=== PATIENT | female | born 1930 | race Caucasian/White ===

== ENCOUNTER → 2016-04-22 | Outpatient (CLI) | payer MEDICARE ==
[~2016-04-22] MED LIST: ALEN70TA47 PO; ALPR.25T; ALPR0.254 PO; AMLO5TAB2 PO; ASP325T; ASP81TEC PO; ATEN50TA PO; ATOR40TA PO; CALC-69 PO; CIPR500T4 PO; DICY10CA12; HYDR1TAB PO; HYDR28.341 RC; LISI20TA2; LISI40TA PO; LORA10TA2 PO; METR500T PO; METR500T21 PO; ONDA4TAB11 PO; PRAV80TA2 PO
--- OUTSIDE RECORDS SUMMARY | 2016-04-22 13:03 | XMS REPORT | Continuity of Care Document ---
Author Author [facility] Organization [facility] Address Unknown Phone Unavailable Care Team Providers Care Audio Visual Coordinator Name Role Phone JAJA GAMEZ DO PCP Insurance Providers Payer Name Policy Number Subscriber Name Relationship Wps Medicare [id number] Reynaldo Cheng 20 Self / Same As Patient Blue [employer] [facility] Supp [id number] Reynaldo Cheng 20 Self / Same As Patient Advance Directives Directive Response Recorded Date/Time Advance Directives No 11/14/13 9:40am Health Care Power of Typesetting Machine Operator/Tender No 11/14/13 9:40am Organ Donor No 11/14/13 9:40am Resuscitation Status Full Code 11/14/13 9:40am Problems No known problems or medical conditions. Medications Medication Dose Route Sig Days/Qty Instructions Order Date Discontinued Date Status Atenolol PO TWICE A DAY 09/06/09 Active Atorvastatin Calcium PO BEDTIME 09/06/09 Active Dicyclomine Hcl FOUR TIMES DAILY 09/06/09 11/10/13 Discontinued Alprazolam NEEDED 09/06/09 Active Aspirin Every day 09/06/09 11/10/13 Discontinued Loratadine DAILY 09/06/09 Active Lisinopril DAILY 09/06/09 Active Acetaminophen/Hydrocodone Bitart 1 Each PO Q4HR PRN 20 Qty 09/06/09 Active Aspirin 81 Mg PO DAILY 11/10/13 Active Metronidazole 1 Each PO THREE TIMES A DAY 10 Days 11/14/13 Active Social History Social History Problem Response Recorded Date/Time Smoking Status Never a Smoker 11/14/2013 9:40am Query Response Start Date Stop Date Smoking Status Never a Smoker Hospital Discharge Instructions No hospital discharge instructions. Plan of Care No plan of care. Functional Status No functional status results. Allergies, Adverse Reactions, Alerts Allergen Type Severity Reaction Status Last Updated Erythromycin base Allergy Unknown Active 12/31/05 Amoxicillin ([id number]) Allergy Unknown Active 01/03/06 Immunizations Name Given Type Date of Pneumonia Vaccine 04/13/11 Historical Vital Signs Acute Vital Signs Vital Response Date/Time Temperature (Fahrenheit) 97.6 degrees F (97.6 - 99.5) Temperature (Calculated Celsius) 36.60699 degrees C (36.4 - 37.5) Temperature Source Tympanic Pulse Rate (adult) 90 bpm (60 - 90) Respiratory Rate 18 bpm (12 - 24) O2 Sat by Pulse Oximetry 98 % (88 - 100) Blood Pressure 171/75 mm Hg Pain Pain Intensity 0 Height (Feet) 5 feet Height (Inches) 3.00 inches Height (Calculated Centimeters) 160.521158 cm Weight (Pounds) 123 pounds Weight (Calculated Grams) 49957.862 gm Weight (Calculated Kilograms) 55.518616 kilograms Calculated BMI 21.79 Results Test Source Date Result Interp. Ref. Range Comments Activated Partial Thromboplast Time January 03, 2006 9:15am 32 SEC N 24-35 Alanine Aminotransferase (ALT/SGPT) May 22, 2009 8:05am 43 U/L N 30 -65 PATIENT SITTING ACROSS FROM LAB Albumin May 22, 2009 8:05am 3.6 G/DL N 3.4-5.0 PATIENT SITTING ACROSS FROM LAB Alkaline Phosphatase May 22, 2009 8:05am 72 U/L N 50-136 PATIENT SITTING ACROSS FROM LAB Aspartate Amino Transf (AST/SGOT) May 22, 2009 8:05am 29 U/L N 15- 37 PATIENT SITTING ACROSS FROM LAB BUN/Creatinine Ratio May 22, 2009 8:05am 16 - PATIENT SITTING ACROSS FROM LAB Band Neutrophils July 03, 2008 4:15am 8 % - Has specimen been collected/obtained? Y Basophils # (Auto) July 03, 2008 4:15am 0.0 10^3/uL N 0.0-0.1 Has specimen been collected/obtained? Y Basophils (%) (Auto) July 03, 2008 4:15am 0 % N 0-10 Has specimen been collected/obtained? Y Blood Urea Nitrogen May 22, 2009 8:05am 16 MG/DL N 7-18 PATIENT SITTING ACROSS FROM LAB Calcium Level May 22, 2009 8:05am 8.8 MG/DL N 8.5-10.1 PATIENT SITTING ACROSS FROM LAB Carbon Dioxide Level May 22, 2009 8:05am 32 MMOL/L N 21-32 PATIENT SITTING ACROSS FROM LAB Chloride Level May 22, 2009 8:05am 106 MMOL/L N 101-110 PATIENT SITTING ACROSS FROM LAB Cholesterol Level May 22, 2009 8:05am 157 MG/DL N -200 PATIENT SITTING ACROSS FROM LAB Creatinine May 22, 2009 8:05am 1.0 MG/DL N 0.6-1.3 PATIENT SITTING ACROSS FROM LAB Eosinophils # (Auto) July 03, 2008 4:15am 0.0 10^3/uL N 0.0-0.3 Has specimen been collected/obtained? Y Eosinophils % (Manual) July 03, 2008 4:15am 1 % - Has specimen been collected/obtained? Y Eosinophils (%) (Auto) July 03, 2008 4:15am 0 % N 0-10 Has specimen been collected/obtained? Y Erythrocyte Sedimentation Rate January 01, 2006 5:55am 9 MM/HR N 0-30 Glucose Level May 22, 2009 8:05am 90 MG/DL N 70-126 PATIENT SITTING ACROSS FROM LAB HDL Cholesterol May 22, 2009 8:05am 50 MG/DL N 35-60 PATIENT SITTING ACROSS FROM LAB Hematocrit July 03, 2008 4:15am 39 % N 35-52 Has specimen been collected/obtained? Y Hemoglobin July 03, 2008 4:15am 13.5 G/DL N 11.5-16.0 Has specimen been collected/obtained? Y LDL Cholesterol May 22, 2009 8:05am 93 MG/DL N 0-129 PATIENT SITTING ACROSS FROM LAB Lymphocytes # (Auto) July 03, 2008 4:15am 0.9 X 10^3 L 1.0-4.0 Has specimen been collected/obtained? Y Lymphocytes % (Manual) July 03, 2008 4:15am 10 % - Has specimen been collected/obtained? Y Lymphocytes (%) (Auto) July 03, 2008 4:15am 8 % L 12-44 Has specimen been collected/obtained? Y Magnesium Level December 31, 2005 2:45am 1.9 MG/DL N 1.8-2.4 Has specimen been collected/obtained? Y Mean Corpuscular Hemoglobin July 03, 2008 4:15am 32 PG N 25-34 Has specimen been collected/obtained? Y Mean Corpuscular Hemoglobin Concent July 03, 2008 4:15am 35 G/DL N 32- 36 Has specimen been collected/obtained? Y Mean Corpuscular Volume July 03, 2008 4:15am 92 FL N 80-99 Has specimen been collected/obtained? Y Mean Platelet Volume July 03, 2008 4:15am 9.7 FL N 7.4-10.4 Has specimen been collected/obtained? Y Miscellaneous Test December 31, 2005 8:48am See report - Miscellaneous Test Result December 31, 2005 8:48am See report - Monocytes # (Auto) July 03, 2008 4:15am 0.9 X 10^3 N 0.0-1.0 Has specimen been collected/obtained? Y Monocytes % (Manual) July 03, 2008 4:15am 6 % - Has specimen been collected/obtained? Y Monocytes (%) (Auto) July 03, 2008 4:15am 8 % N 0-12 Has specimen been collected/obtained? Y Myoglobin December 31, 2005 2:45am 44 UG/L N 10-92 Has specimen been collected/obtained? Y Neutrophils # (Auto) July 03, 2008 4:15am 9.1 X 10^3 H 1.8-7.8 Has specimen been collected/obtained? Y Neutrophils % (Manual) July 03, 2008 4:15am 75 % - Has specimen been collected/obtained? Y Neutrophils (%) (Auto) July 03, 2008 4:15am 83 % H 42-75 Has specimen been collected/obtained? Y Platelet Count July 03, 2008 4:15am 177 10^3/uL N 130-400 Has specimen been collected/obtained? Y Potassium Level May 22, 2009 8:05am 4.3 MMOL/L N 3.6-5.0 PATIENT SITTING ACROSS FROM LAB Prothromb Time International Ratio January 03, 2006 9:15am 0.9 N 0.8- 1.4 INTERPRETIVE DATASUGGESTED THERAPEUTIC RANGE FOR INR'S : VENOUS THROMBOSIS, PULMONARY EMBOLISM, OR PREVENTION OF SYSTEMIC EMBOLISM (EG. IN ATRIAL FIBRILLATION): 2.0 - 3.0 MECHANICAL PROSTHETIC HEART VALVES: 2.5 - 3.5* *NOTE: INR'S UP TO 4.5 MAY BE NECESSARY IN SELECTED GROUPS OF HIGH RISK PATIENTS. [employer] CONSENSUS CONFERENCE ON ANTITHROMBOTIC THERAPY (2000). Prothrombin Time January 03, 2006 9:15am 12.6 SEC N 12.2-14.7 Red Blood Count July 03, 2008 4:15am 4.23 10^6/uL L 4.35-5.85 Has specimen been collected/obtained? Y Red Cell Distribution Width July 03, 2008 4:15am 13.0 % N 10.0-14.5 Has specimen been collected/obtained? Y Sodium Level May 22, 2009 8:05am 140 MMOL/L N 135-145 PATIENT SITTING ACROSS FROM LAB Thyroid Stimulating Hormone (TSH) January 01, 2006 5:55am 1.16 ULU/ML N 0.34-5.60 Total Bilirubin May 22, 2009 8:05am 0.5 MG/DL N 0.0-1.0 PATIENT SITTING ACROSS FROM LAB Total Protein May 22, 2009 8:05am 7.3 G/DL N 6.4-8.2 PATIENT SITTING ACROSS FROM LAB Triglycerides Level May 22, 2009 8:05am 72 MG/DL N 30.0-150.0 PATIENT SITTING ACROSS FROM LAB Troponin I December 31, 2005 2:50pm < 0.10 MG/ML 0.00-0.10 Urine Bacteria July 03, 2008 4:20am NEGATIVE - Has specimen been collected/obtained? YSpecimen Description CLEAN CATCH Urine Bilirubin July 03, 2008 4:20am NEGATIVE - Has specimen been collected/obtained? YSpecimen Description CLEAN CATCH Urine Casts July 03, 2008 4:20am NONE - Has specimen been collected/ obtained? YSpecimen Description CLEAN CATCH Urine Clarity July 03, 2008 4:20am CLEAR - Has specimen been collected/obtained? YSpecimen Description CLEAN CATCH Urine Color July 03, 2008 4:20am YELLOW - Has specimen been collected/obtained? YSpecimen Description CLEAN CATCH Urine Crystals July 03, 2008 4:20am NONE - Has specimen been collected/obtained? YSpecimen Description CLEAN CATCH Urine Culture Indicated July 03, 2008 4:20am NO - Has specimen been collected/obtained? YSpecimen Description CLEAN CATCH Urine Glucose (UA) July 03, 2008 4:20am NEGATIVE - Has specimen been collected/obtained? YSpecimen Description CLEAN CATCH Urine Ketones July 03, 2008 4:20am NEGATIVE - Has specimen been collected/obtained? YSpecimen Description CLEAN CATCH Urine Leukocyte Esterase July 03, 2008 4:20am 1+ H - Has specimen been collected/obtained? YSpecimen Description CLEAN CATCH Urine Mucus July 03, 2008 4:20am NEGATIVE - Has specimen been collected/obtained? YSpecimen Description CLEAN CATCH Urine Nitrate December 31, 2005 3:40am Negative - Has specimen been collected/obtained? YSpecimen Description STRAIGHT CATH, IN/OUT Urine Nitrite July 03, 2008 4:20am NEGATIVE - Has specimen been collected/obtained? YSpecimen Description CLEAN CATCH Urine Protein July 03, 2008 4:20am NEGATIVE - Has specimen been collected/obtained? YSpecimen Description CLEAN CATCH Urine RBC July 03, 2008 4:20am NONE /HPF - Has specimen been collected/obtained? YSpecimen Description CLEAN CATCH Urine Specific [place] July 03, 2008 4:20am 1.005 L - Has specimen been collected/obtained? YSpecimen Description CLEAN CATCH Urine Squamous Epithelial Cells July 03, 2008 4:20am 2-5 - Has specimen been collected/obtained? YSpecimen Description CLEAN CATCH Urine Urobilinogen July 03, 2008 4:20am NORMAL MG/DL - Has specimen been collected/obtained? YSpecimen Description CLEAN CATCH Urine WBC July 03, 2008 4:20am 0-2 /HPF - Has specimen been collected/obtained? YSpecimen Description CLEAN CATCH Urine pH July 03, 2008 4:20am 7.0 - Has specimen been collected/ obtained? YSpecimen Description CLEAN CATCH VLDL Cholesterol May 22, 2009 8:05am 14 MG/DL N 5-40 PATIENT SITTING ACROSS FROM LAB West Nile Virus IgG Antibody December 31, 2005 8:48am See report - West Nile Virus IgM Antibody December 31, 2005 8:48am See report - White Blood Count July 03, 2008 4:15am 11.0 10^3/uL N 4.3-11.0 Has specimen been collected/obtained? Y Pathology Consult Specimen December 31, 2005 2:45am See report - Has specimen been collected/obtained? Y Estimat Glomerular Filtration Rate May 22, 2009 8:05am 57 - GFR INTERPRETIVE DATA UNITS FOR ESTIMATED GFR (eGFR): mL/min/1.73 M2 REFERENCE RANGE FOR ESTIMATED GFR (eGFR) eGFR NORMAL eGFR >60 MODERATELY DECREASED eGFR 30-59 SEVERLY DECREASED eGFR 15-29 KIDNEY FAILURE <15 (OR DIALYSIS) Spotted Fever Group IgG Antibody December 31, 2005 8:48am See report - Spotted Fever Group IgM Antibody December 31, 2005 8:48am See report - Blood Morphology Comment July 03, 2008 4:15am NORMAL - Has specimen been collected/obtained? Y Creatine Kinase December 31, 2005 2:50pm 50 mg/dl N 21-140 Urine RBC (Auto) July 03, 2008 4:20am NEGATIVE - Has specimen been collected/obtained? YSpecimen Description CLEAN CATCH Blood Culture Peripheral-Rt Ac December 31, 2005 3:30am No growth Clostridium difficile Toxin A&B (M) Stool July 22, 2008 4:30am Procedures Procedure Status Date Provider(s) Diagnostic colonoscopy completed 11/14/13 LIANA FERRELL MD Encounters Encounter Location Date/Time Registered Clinic [facility] [address] 11/10/13 7:13am
== END ==
LOC: RAD 13:00
PROVIDERS: ATTEND Nurse Practitioner Family
DX: I73.9 Peripheral vascular disease, unspecified (principal)
CPT/HCPCS: 93923

== ENCOUNTER → 2017-06-11 | Outpatient (CLI) | payer MEDICARE ==
[2017-06-11 14:11] LABS: BASOPHILS % (AUTO) 0 % (0-10); EOSINOPHILS # (AUTO) 0.5 10^3/uL (0.0-0.3); EOSINOPHILS % (AUTO) 6 % (0-10); HEMATOCRIT 40 % (35-52); HEMOGLOBIN 13.8 G/DL (11.5-16.0); LYMPHOCYTES # (AUTO) 2.7 X 10^3 (1.0-4.0); LYMPHOCYTES % (AUTO) 29 % (12-44); MEAN CORPUSCULAR HEMOGLOBIN 33 PG (25-34); MEAN CORPUSCULAR HGB CONC 35 G/DL (32-36); MEAN CORPUSCULAR VOLUME 94 FL (80-99); MEAN PLATELET VOLUME 9.5 FL (7.4-10.4); MONOCYTES # (AUTO) 0.9 X 10^3 (0.0-1.0); MONOCYTES % (AUTO) 10 % (0-12); NEUTROPHILS % (AUTO) 55 % (42-75); PLATELET COUNT 238 10^3/uL (130-400); RED BLOOD COUNT 4.24 10^6/uL (4.35-5.85); RED CELL DISTRIBUTION WIDTH 12.6 % (10.0-14.5); WHITE BLOOD COUNT 9.2 10^3/uL (4.3-11.0)
--- NOTE | 2017-06-11 14:37 | Diagnostic Imaging Report ---
INDICATION: Cough and congestion. TIME OF EXAM: 2:16 PM COMPARISON: Correlation is made with prior study from 10/25/2015. FINDINGS: Heart size is normal. There has been development of a slightly nodular density in the right mid to lower lung field when compared with prior exam. This measures 13 mm in size. No other abnormal parenchymal densities identified. No effusion is seen. There is no pneumothorax. IMPRESSION: Development of 13 mm nodular density in the right lung since prior chest radiograph from 10/25/2015. Further evaluation with CT of the chest is recommended. Dictated by: Dictated on workstation # [id number]
== END ==
LOC: RAD 13:45
PROVIDERS: ATTEND Family Medicine
DX: R91.1 Solitary pulmonary nodule (principal); R05 Cough; R09.89 Other specified symptoms and signs involving the circulatory and respiratory systems
CPT/HCPCS: 36415; 71046; 85025

== ENCOUNTER → 2017-06-12 | Outpatient (CLI) | payer MEDICARE ==
[2017-06-12 12:02] LABS: CREATININE SERUM 0.9 MG/DL (0.60-1.30)
== END ==
LOC: LAB 11:29
PROVIDERS: ATTEND Family Medicine
DX: N28.9 Disorder of kidney and ureter, unspecified (principal)
CPT/HCPCS: 36415; 82565; 84520

== ENCOUNTER → 2017-06-15 | Outpatient (CLI) | payer MEDICARE ==
[~2017-06-15] MED LIST changes: +CATHETER FLUSH 10 ML SYR IV PRN; +IOHEXOL 350 MG/ML 100 ML (OMNIPAQUE 350) VIAL IV ONE; +NS 100 ML (IVPB) BAG IV ONE
--- NOTE | 2017-06-15 17:44 | Diagnostic Imaging Report ---
PROCEDURE: CT chest with contrast only. TECHNIQUE: Multiple contiguous axial images were obtained through the chest after administration of intravenous contrast. INDICATION: Cough and pulmonary nodule noted on chest radiograph performed on 06/11/2017. FINDINGS: There is diffuse centrilobular emphysema throughout the lungs with areas of calcified pleural plaquing most pronounced in the apex. There are also prominent interstitial markings throughout the lungs with mild reticulonodular densities in the lung bases. In addition, there is groundglass opacity with tree in bud appearance in the medial segment of the right middle lobe with an approximately 1 cm subpleural nodule. No definite pathologic adenopathy is appreciated. There is no significant pleural or pericardial fluid. There is moderate aortic atherosclerotic calcification. IMPRESSION: Findings are most suggestive of multifocal pneumonitis or atypical pneumonia with most dense involvement in the right middle lobe. 1 cm nodular density focus at this site may represent atypical infiltrate as well. Possibility of pulmonary neoplasm is not fully excluded and clinical correlation and short-term followup study after treatment for pneumonia would be useful. If this finding persists or if other clinical features indicate, PET/CT imaging could be considered. Dictated by: Dictated on workstation # [id number]
== END ==
LOC: RAD 14:54
PROVIDERS: ATTEND Family Medicine
DX: R91.1 Solitary pulmonary nodule (principal); R05 Cough
CPT/HCPCS: 71260

== ENCOUNTER → 2017-06-22 | Outpatient (CLI) | payer MEDICARE ==
[~2017-06-22] MED LIST changes: -CATHETER FLUSH 10 ML SYR IV PRN; -IOHEXOL 350 MG/ML 100 ML (OMNIPAQUE 350) VIAL IV ONE; -NS 100 ML (IVPB) BAG IV ONE
--- NOTE | 2017-06-22 08:54 | Diagnostic Imaging Report ---
INDICATION: Pneumonia COMPARISON: 06/11/2017 FINDINGS: Two views of the chest were obtained. Heart size is normal. The pulmonary vessels appear unremarkable. There is no pneumothorax, mediastinal widening or pleural fluid. The ill-defined nodular density in the right mid chest persists measuring about 1.3 cm similar to the prior study. The lungs are otherwise fairly clear. There are findings suggestive of COPD. There are degenerative changes in the spine. IMPRESSION: Nonspecific slightly ill-defined nodular opacity in the right mid chest is unchanged from the prior chest x-ray. No significant new abnormality seen compared to the prior study. Chronic findings of COPD are stable. Continued radiographic followup is recommended. Dictated by: Dictated on workstation # [id number]
== END ==
LOC: RAD 08:12
PROVIDERS: ATTEND Family Medicine
DX: J18.9 Pneumonia, unspecified organism (principal)
CPT/HCPCS: 71046

== ENCOUNTER → 2017-07-09 | Outpatient (CLI) | payer MEDICARE ==
--- NOTE | 2017-07-09 10:35 | Diagnostic Imaging Report ---
INDICATION: Followup pneumonia. TIME OF EXAMINATION: 9:59 AM. COMPARISON: 06/22/2017. FINDINGS: The heart size is stable. The nodular density in the right lung base persists and is similar to the prior exam. No significant infiltrate is seen. There is no effusion or pneumothorax. The lungs are hyperinflated. IMPRESSION: Persistent nodular density as seen on multiple prior chest radiographs as well as the recent CT. A small pulmonary neoplasm again cannot be entirely excluded. A PET/CT would be useful for further evaluation to evaluate for hypermetabolism. Dictated by: Dictated on workstation # [id number]
== END ==
LOC: RAD 09:34
PROVIDERS: ATTEND Family Medicine
DX: J18.9 Pneumonia, unspecified organism (principal); R91.8 Other nonspecific abnormal finding of lung field
CPT/HCPCS: 71046

== ENCOUNTER → 2017-07-21 | Outpatient (CLI) | payer MEDICARE ==
--- NOTE | 2017-07-21 15:53 | Diagnostic Imaging Report ---
INDICATION: Right lung nodule. This study is performed for further evaluation. TECHNIQUE: Serum blood glucose level at time of injection was 102 mg/dL. The patient was administered 12.3 mCi F-18 FDG intravenously in the right forearm and PET imaging was performed from the top of the skull to the mid thighs. Noncontrast CT imaging was also performed for attenuation correction and anatomic correlation. COMPARISON: Correlation is made with prior chest radiographs from 06/22/2017 and 07/09/[address] prior [address] chest from 06/15/2017. FINDINGS: There is symmetric metabolism within the brain. Soft tissues of the neck are unremarkable. Chest does demonstrate a hypermetabolic nodule in the lateral portion of the right middle lobe, corresponding to the CT abnormality. This demonstrates SUV max of 5.6. There is a second mildly hypermetabolic nodule medial to this in the right middle lobe with lower level hypermetabolism with SUV max of 2.9. No other parenchymal hypermetabolic foci are detected. Mediastinum and yessy are unremarkable. There is physiologic activity throughout the abdomen and pelvis. No abnormal hypermetabolic foci are detected. IMPRESSION: There are two hypermetabolic nodules in the right middle lobe, as described, largest is laterally located and corresponds to the chest x-ray and CT abnormality. Features are concerning for neoplasm. Infectious/inflammatory process again cannot be entirely excluded. No definite mediastinal or hilar hypermetabolism is seen. Dictated by: Dictated on workstation # [id number]
== END ==
LOC: RAD 07:39
PROVIDERS: ATTEND Family Medicine
DX: R91.8 Other nonspecific abnormal finding of lung field (principal)

== ENCOUNTER 2017-07-28 11:02 | Outpatient (CLI) | payer MEDICARE ==
[~2017-07-28] VITALS: Ht 160 cm; Wt 55.8 kg
[2017-07-28] MEDS ORDERED: LORA10TA7 PO (14:58)
[2017-07-28] MEDS ORDERED: ASPI-983 PO (14:58)
[2017-07-28] MEDS ORDERED: METR45CR TP (14:58)
== END 2017-07-28 15:02 ==
LOC: PREOP 11:02
PROVIDERS: ATTEND Internal Medicine Critical Care Medicine
DX: Z01.818 Encounter for other preprocedural examination (principal); R91.8 Other nonspecific abnormal finding of lung field; J18.9 Pneumonia, unspecified organism

== ENCOUNTER 2017-08-05 06:55 | Day surgery (SDC) | payer MEDICARE ==
[~2017-08-05] VITALS: Ht 160 cm; Wt 55.8 kg
[~2017-08-05 06:55] MED LIST changes: +ASPI-983 PO; +LORA10TA7 PO; +METR45CR TP
[2017-08-05] MEDS ORDERED: LIDOCAINE PF 1% 2 ML AMP IJ ONE (06:56)
[2017-08-05] MEDS ORDERED: LIDOCAINE JELLY 2% (XYLOCAINE) 30 ML TUBE TOP ONE (06:56)
[2017-08-05] MEDS ORDERED: LIDOCAINE 4% INJ (XYLOCAINE) 5ML AMP INJ ONE (06:56)
[2017-08-05] MEDS ORDERED: NS IV 500 ML 500 ML ONE (07:12)
[2017-08-05] MEDS ORDERED: NS IV 500 ML 500 ML IV PRN (07:13)
--- NOTE | 2017-08-05 07:19 | Progress Note-Pre Operative ---
Pre-Operative Progress Note H&P Reviewed The H&P was reviewed, patient examined and no changes noted. Time Seen by Provider: 07:18 Date H&P Reviewed: Aug 05, 2017 Time H&P Reviewed: 07:19 Pre-Operative Diagnosis: Lung mass GERDA GONZALEZ DO Aug 05, 2017 07:19
--- NOTE | 2017-08-05 07:20 | Progress Note-Post Operative ---
Post-Procedure Note Physician (s)/Pump Operator (s) Physician GERDA GONZALEZ DO Pre-Procedure Diagnosis Pre-Procedure Diagnosis: Lung mass Post-Procedure Note Anesthesia Type: Conscious Sedation, Fetanyl, Versed Post-Procedure Diagnosis Post-operative diagnosis: GERDA Jain DO Aug 05, 2017 07:20
[2017-08-05 07:34] VITALS: BP 143/116
[2017-08-05] MEDS ORDERED: fentaNYL INJECTION 100 MCG/2 ML AMP ONE ×2 (07:36)
[2017-08-05] MEDS ORDERED: MIDAZOLAM 2 MG/2 ML (VERSED) VIAL ONE ×4 (07:37)
[2017-08-05] MEDS: MIDAZOLAM 2 MG/2 ML (VERSED) VIAL IVP PRN ×2 (07:57→07:59)
[2017-08-05] MEDS: fentaNYL INJECTION 100 MCG/2 ML AMP IVP PRN ×2 (07:58→08:00)
[2017-08-05 08:45] VITALS: BP 166/71
[2017-08-05 09:15] VITALS: BP 182/66
--- NOTE | 2017-08-05 09:32 | Diagnostic Imaging Report ---
INDICATION: Post bronchoscopy. TIME OF EXAMINATION: 08:43 a.m. COMPARISON: Correlation is made with prior study from 07/09/2017. FINDINGS: Heart size is stable. No pneumothorax is identified, status post bronchoscopy. Biapical pleural-parenchymal scarring and pleural calcification is unchanged. There are some interstitial changes present. No parenchymal consolidation is seen. No effusion is identified. IMPRESSION: No evidence of pneumothorax, status post bronchoscopy. Dictated by: Dictated on workstation # [id number]
[2017-08-05 09:40] VITALS: BP 182/66
--- NOTE | 2017-08-05 10:29 | Diagnostic Imaging Report ---
Indication: Fluoroscopy for bronchoscopy. Findings: Fluoroscopy was performed during performance of bronchoscopy by Dr. Mendez. 45 seconds of fluoroscopic time was utilized. Multiple images over the right chest were obtained during a bronchoscopy Impression: Fluoroscopy for bronchoscopy. Dictated by: Dictated on workstation # [id number]
--- NOTE | 2017-08-12 08:59 | Pulmonary Procedures ---
Pulmonary Procedures Date of Procedure Date of Service: Aug 05, 2017 Bronch Bronchoscopy with bronchoalveolar lavage (BAL), transbronchial washes and, brushes. Preop DX Lung Mass Postop DX: same Complications: none After informed consent obtained and formal time out pt was sedated using Fentanyl and Versed. Bronchoscope was advanced through the nare and vocal cords. 1% lidocaine was used to anesthetize vocal cords, epiglottis, kostas, and left/right main stem bronchus. An anatomical tour was undertaken down to the segmental bronchi bilaterally. No endobronchial lesions noted. From the RML a bronchoalveolar lavage (BAL), transbronchial washes and, brushes were obtained. Pt tolerated procedure well. No complications noted. Stat CXR is pending. GERDA GONZALEZ DO August 12, 2017 08:59
== END 2017-08-05 09:40 | disposition home or self-care (01) ==
LOC: ENDO 06:55
PROVIDERS: ATTEND Internal Medicine Critical Care Medicine
DX: R91.8 Other nonspecific abnormal finding of lung field (principal); J18.9 Pneumonia, unspecified organism; J30.2 Other seasonal allergic rhinitis; Z80.8 Family history of malignant neoplasm of other organs or systems; Z79.899 Other long term (current) drug therapy; Z88.1 Allergy status to other antibiotic agents
CPT/HCPCS: 71045; 87070; 87101; 87116; 87205; 88112; 88305; 88312; 94640

== ENCOUNTER → 2017-09-14 | Outpatient (CLI) | payer MEDICARE | LOC: CARD 10:32 | PROVIDERS: ATTEND Nurse Practitioner Family | DX: I34.0 Nonrheumatic mitral (valve) insufficiency (principal); I07.1 Rheumatic tricuspid insufficiency; I27.21 Secondary pulmonary arterial hypertension | CPT/HCPCS: 93306 ==

== ENCOUNTER → 2017-11-11 | Outpatient (CLI) | payer MEDICARE ==
--- NOTE | 2017-11-11 09:41 | Diagnostic Imaging Report ---
PROCEDURE: CT chest without contrast. TECHNIQUE: Multiple contiguous axial images were obtained through the chest without the use of intravenous contrast. INDICATION: Lung mass, followup. COMPARISON: Comparison is made with prior CT from 06/15/2017. FINDINGS: No axillary lymphadenopathy is detected. Hilar and mediastinal evaluation is limited without intravenous contrast but no significant abnormality is seen. There are coronary arterial calcifications present. No pericardial or pleural fluid is identified. Parenchymal evaluation again shows centrilobular emphysematous changes. There is some residual density in the right middle lobe. There appears to be some associated bronchiectasis in the right middle lobe. There is a rounded nodular component measuring 8 mm. This appears to be a slightly different location in the right middle lobe than the previously described 10 mm nodule. Reticular nodular opacities in the lower lobes are again noted. These appear to be slightly improved on the right. There may be some increasing reticular nodular opacities in the left lower lobe. Small subpleural nodule in the left lower lobe laterally seen measuring 5 mm, not present on prior exam. No other masses are seen. IMPRESSION: There continue to be reticular nodular opacities bilaterally. This appears to be increased on the left and fairly stable on the right. There continues to be some airspace density in the right middle lobe and nodularity, as described. Findings again are likely on infectious/inflammatory basis. Continued followup is recommended to confirm stability. Dictated by: Dictated on workstation # [id number]
== END ==
LOC: RAD 08:14
PROVIDERS: ATTEND Nurse Practitioner Family
DX: R91.8 Other nonspecific abnormal finding of lung field (principal); J30.2 Other seasonal allergic rhinitis
CPT/HCPCS: 71250

== ENCOUNTER → 2018-02-23 | Outpatient (CLI) | payer MEDICARE ==
[~2018-02-23] MED LIST changes: -AMLO5TAB2 PO; +AMLO5TAB7 PO; +METR-197 PO; -METR500T21 PO
--- NOTE | 2018-02-23 10:34 | Diagnostic Imaging Report ---
PROCEDURE: CT chest without contrast. TECHNIQUE: Multiple contiguous axial images were obtained through the chest without the use of intravenous contrast. INDICATION: Lung mass. FINDINGS: The previous CT chest exam performed on 11/11/2017 noted reticular nodular opacities bilaterally as well as some airspace density and nodularity in the right middle lobe. On this exam there is still increased density throughout the right middle lobe but the 9.8 mm nodule in the right middle lobe noted on the prior exam has decreased in size and now measures only 7.5 mm. The reticular nodular density in the lung bases seen previously are not significantly changed with the exception of a new nodular density in the right lower lobe. This measures 6.5 x 9.2 mm. The etiology of this nodular density is not certain. The possibility that this is neoplastic in nature should be considered. I would recommend that a short-term (three-month) followup CT of the chest exam be performed for further evaluation. The overall appearance of the chest has not changed significantly otherwise. The heart size is stable. There are extensive coronary artery calcifications evident. The ascending aorta is not abnormally dilated. There is no obvious mediastinal or hilar adenopathy. The thyroid gland is generally unremarkable. There is no obvious breast mass. The sections through the upper abdomen fail to show any sign of acute abnormality. The bone shows no sign of a fracture or a destructive lesion. IMPRESSION: 1. There are mixed results. The nodule in the right middle lobe seen previously has decreased in size but a new nodule has developed in the right lower lobe. The fact that this lesion has developed in the short interval since the prior exam would weigh against it being neoplastic in nature. Even so that possibility should still be considered. Recommendations as above. 2. The overall appearance of the chest is otherwise stable. No new abnormality has developed. Dictated by: Dictated on workstation # [id number]
== END ==
LOC: RAD 08:41
PROVIDERS: ATTEND Nurse Practitioner Family
DX: A31.0 Pulmonary mycobacterial infection (principal); R91.8 Other nonspecific abnormal finding of lung field; R06.00 Dyspnea, unspecified
CPT/HCPCS: 71250

== ENCOUNTER → 2018-03-30 | Outpatient (CLI) | payer MEDICARE ==
[~2018-03-30] MED LIST changes: +CATHETER FLUSH 10 ML SYR IV PRN; +REGADENOSON 0.4 MG/5 ML SYR (LEXISCAN) IV ONE
[2018-03-30 08:48] VITALS: BP 166/68
[2018-03-30 08:51] VITALS: BP 138/61
--- NOTE | 2018-03-31 14:57 | STRESS TEST ---
DATE OF SERVICE: 03/30/2018 RESTING AND POST REGADENOSON TECHNETIUM-99M TETROFOSMIN SPECT CT IMAGING Baseline images were carried out after injection of 10.41 mCi of technetium-99m Tetrofosmin. This was followed by 0.4 mg regadenoson and 29.6 mCi of technetium-99m Tetrofosmin for stress imaging. The electrocardiogram showed sinus rhythm with left bundle branch block at baseline. The electrocardiogram did not change significantly with the regadenoson infusion. The patient noted some shortness of breath following regadenoson infusion, which resolved in a few minutes. Review of images at rest and following stress does not indicate any distinct perfusion defects consistent with significant myocardial ischemia or infarction. Gated images show normal global left ventricular systolic function and normal regional wall motion. Left ventricular ejection fraction is calculated to be 71%. Left ventricular end diastolic volume is 29 mL. TID is absent (1.02). CONCLUSIONS: 1. No evidence of any significant myocardial ischemia or infarction on this study. 2. Normal regional wall motion. 3. Normal global left ventricular systolic function with a calculated ejection fraction of 71%. Job ID: [id number] DocumentID: [id number] Dictated Date: 03/31/2018 10:57:18 Patient Access Representative Date: 03/31/2018 14:57:29 Dictated By: ROSETTA KING MD, MA, FACP, FACC,
== END ==
LOC: CARD 07:04
PROVIDERS: ATTEND Internal Medicine Cardiovascular Disease
DX: I25.10 Atherosclerotic heart disease of native coronary artery without angina pectoris (principal); I65.29 Occlusion and stenosis of unspecified carotid artery; I10 Essential (primary) hypertension; E78.5 Hyperlipidemia, unspecified
CPT/HCPCS: 78452; 93017

== ENCOUNTER → 2019-02-15 | Outpatient (CLI) | payer MEDICARE ==
[~2019-02-15] MED LIST changes: -ALEN70TA47 PO; +ALEN70TA5 PO; -AMLO5TAB7 PO; +AMLO5TAB9 PO; -CATHETER FLUSH 10 ML SYR IV PRN; +METR-145 PO; -METR-197 PO; -REGADENOSON 0.4 MG/5 ML SYR (LEXISCAN) IV ONE
--- NOTE | 2019-02-15 17:23 | Diagnostic Imaging Report ---
EXAMINATION: CT Chest without contrast. TECHNIQUE: Multiple contiguous axial images were obtained through the chest without the use of intravenous contrast. All CT scans use one or more of the following dose optimizing techniques: automated exposure control, MA and/or KvP adjustment based on a patient size and exam type, or iterative reconstruction. HISTORY: LUNG MASS. COMPARISON: 02/23/2018. FINDINGS: There is right middle lobe and lingular bronchiectasis with tree-in-bud nodules and mucous plugging. There is also mucous plugging and bronchiectasis in both lower lobes with associated tree-in-bud nodules. The upper lobes are relatively spared. The degree of mucous plugging has mildly increased. The degree of involvement of the right middle lobe is also mildly increased. 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 No pneumothorax or pleural effusion. No edema or pneumonia. Heart size is normal. No pericardial effusion. Aorta is normal in caliber. There is no axillary or supraclavicular lymphadenopathy. There is no mediastinal lymphadenopathy. There are severe coronary artery calcifications. Limited views of the upper abdomen are unremarkable. There are no suspicious osseous lesions. IMPRESSION: 1. Slightly progressed right middle lobe and lingular bronchiectasis with tree-in-bud nodules and mucous plugging also involving the lower lobes. The appearance is most consistent with chronic endobronchial infection with the differential being led by Mycobacterium avium complex. Dictated by: Dictated on workstation # [id number]
== END ==
LOC: RAD 13:13
PROVIDERS: ATTEND Nurse Practitioner Family
DX: A31.0 Pulmonary mycobacterial infection (principal); J30.2 Other seasonal allergic rhinitis; J47.9 Bronchiectasis, uncomplicated; R91.8 Other nonspecific abnormal finding of lung field
CPT/HCPCS: 71250

== ENCOUNTER 2019-10-21 02:55 | Emergency (ER) | payer MEDICARE ==
[~2019-10-21] VITALS: Ht 162.5 cm; Wt 54.0 kg
--- OUTSIDE RECORDS SUMMARY | 2019-10-21 03:02 | XMS REPORT ---
Author Author [facility] [employer] Address [address] [place] [address] Care Team Providers Care Chief Investment Officer Name Role Phone JAJA GAMEZ Unavailable ODESSA TUBBS Unavailable Unavailable BROOKE LÓPEZ APRN Unavailable Unavailable Unavailable Unavailable Unavailable Unavailable Allergies Allergy Reported Allergen(s) Allergy Type Date of Reaction(s) Care Facility Classificati Onset Provider on Unclassified erythromycin base DA 10-24-2015 (22 sources) Encounters Encounter Date Encounter Type Encounter Diagnosis Care Provider Facility Start: Patient encounter BROOKE LÓPEZ [facility] [address] read 02-15-2019 procedure [facility] ([id number]) Start: Patient encounter ROSETTA KING MD [facility] Not Donna ilable ([id number]) 03-30-2018 procedure Start: Patient encounter BROOKE LÓPEZ Not Avail able ([id number]) 02-23-2018 procedure Start: Patient encounter NA NA Not Availab le ([id number]) 11-11-2017 procedure Start: Patient encounter 09-14-2017 procedure Start: Patient encounter 08-05-2017 procedure End: 08-05-2017 Start: Patient encounter 06-22-2017 procedure Start: Patient encounter 06-15-2017 procedure Start: Patient encounter 06-12-2017 procedure Start: Patient encounter 06-11-2017 procedure Start: Patient encounter 04-22-2016 procedure Start: Patient encounter 01-29-2016 procedure Start: Evaluation and 10-24-2015 management of inpatient End: 10-29-2015 Start: Patient encounter 10-03-2015 procedure Start: Patient encounter 07-12-2015 procedure Start: Patient encounter 05-14-2015 procedure Start: Patient encounter 09-21-2014 procedure Start: Patient encounter 11-14-2013 procedure End: 11-14-2013 ENCOUNTER FOR OTHER PREPROCEDURAL EXAMIN EXAM PRE-OPERATIVE NOS Medical Equipment No Information Goals No Information Immunizations No Information Interventions No Information Medications No Information Payers No Information Plan of Treatment The data below is from unstructured sourcesNo plan of care. Problems Active Problems Problem Problem Date Last Documented Episodic/Chr Provider Classificati Recorded Date onic on Allergic Allergy status to other antibiotic E pisodic reactions agents status (4 sources) Chronic Chronic obstructive pulmonary Chroni c obstructive disease, unspecified ; pulmonary Translations: [Bronchiectas is, disease and uncomplicated] bronchiectas is (3 sources) Coronary Chronic ischemic heart disease, Spool Fixer jaylen atherosclero unspecified ; Translations: sis and [Atherosclerotic heart dise ase of other heart [place] coronary artery with out disease angina pectoris] (9 sources) Deficiency Anemia, unspecified Episodic and other anemia (2 sources) Disorders of Other and unspecified Chronic lipid hyperlipidemia ; Translatio ns: metabolism [Pure hypercholesterolemia] (7 sources) Diverticulos Diverticulosis of colon (without Chr onic is and mention of hemorrhage) diverticulit is (2 sources) Essential Unspecified essential hypertension C hronic hypertension ; Translations: [Essential (7 sources) (primary) hypertension] Heart valve Nonrheumatic mitral (valve) Chronic disorders insufficiency ; Translation s: (4 sources) [RHEUMATIC TRICUSPID INSUFF ICIENCY] Intestinal Fecal impaction Episodic obstruction without hernia (2 sources) Malaise and Other malaise and fatigue ; Episodic fatigue Translations: [Weakness] (4 sources) Occlusion or Occlusion and stenosis of Chronic AL I FERNANDO stenosis of unspecified carotid artery MD FACC precerebral arteries (3 sources) Osteoporosis Age-related osteoporosis without Chr onic (4 sources) current pathological fractu re Other Other superintendent terminal (current) drug Episo dic aftercare therapy (4 sources) Other bone Other specified disorders of bone Ep isodic disease and density and structure, othe r site musculoskele solitario deformities (2 sources) Other Unspecified disorders of arteries Ch ronic circulatory and arterioles disease (2 sources) Other Other specified symptoms and signs E pisodic circulatory involving the circulatory a nd disease respiratory systems (5 sources) Other Disorder of kidney and ureter, Episo dic diseases of unspecified kidney and ureters (4 sources) Other lower Other nonspecific abnormal finding E pisodic respiratory of lung field disease (22 sources) Other lower Cough Episodic respiratory disease (6 sources) Other lower Other disorders of lung Episodic respiratory disease (6 sources) Other lower Solitary pulmonary nodule Episodic respiratory disease (12 sources) Other lower Shortness of breath Episodic respiratory disease (2 sources) Other upper Other seasonal allergic rhinitis Chr onic respiratory disease (8 sources) Peripheral Peripheral vascular disease, Chronic and visceral unspecified atherosclero sis (7 sources) Pneumonia Pneumonia, unspecified organism ; Ep isodic (except that Translations: [Pulmonary caused by mycobacterial infection] tuberculosis or sexually transmitted disease) (20 sources) 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 (4 sources) Residual Family history of malignant Episodic codes; neoplasm of other organs or systems unclassified (4 sources) Spondylosis; Spondylosis without myelopathy or Ch ronic intervertebr radiculopathy, lumbar regio n al disc disorders; other back problems (2 sources) Past or Other Problems Problem Problem Date Last Documented Episodic/Chr Provider Classificati Recorded Date onic on Other lower Dyspnea, unspecified Episodic LEAH NE respiratory MARIBEL disease (4 sources) Procedures No Information Results The data below is from unstructured sourcesNo relevant diagnostic test, laboratory data and/or discharge summary information available. Social History No Information Vital Signs The data below is from unstructured sources Vital Response Date/Time Temperature (Fahrenheit) 97.6 degree s F (97.6 - 99.5) Temperature (Calculated Celsius) 36. 73423 degrees C (36.4 - 37.5) Temperature Source Tympanic Pulse Rate (adult) 90 bpm (60 - 90) Respiratory Rate 18 bpm (12 - 24) O2 Sat by Pulse Oximetry 98 % (88 - 100) Blood Pressure 171/75 mm Hg Pain Pain Intensity 0 Height (Feet) 5 feet Height (Inches) 3.00 inches Height (Calculated Centimeters) 160. 190735 cm Weight (Pounds) 123 pounds Weight (Calculated Grams) 93838.862 gm Weight (Calculated Kilograms) 55.791 862 kilograms Calculated BMI 21.79 Vital Response Date/Time Temperature (Fahrenheit) 98.0 degree s F (97.6 - 99.5) 08/05/2017 9:40am Temperature (Calculated Celsius) 36. 04755 degrees C (36.4 - 37.5) 08/05/2017 9:40am Temperature Source Skin 08/05/2017 9:40am Pulse Rate (adult) 60 bpm (60 - 90) 08/05/2017 9:40am Respiratory Rate 16 bpm (12 - 24) 08/05/2017 9:40am O2 Sat by Pulse Oximetry 93 % (88 - 100) 08/05/2017 9:40am Blood Pressure 182/66 mm Hg 08/05/2017 9:40am Blood Pressure Mean 125 mm Hg (65 - 110) 08/05/2017 7:34am Pain Numeric Pain Scale 0-No Pain 08/05/2017 9:40am Pain Intensity 0 2017 9:15am Height (Feet) 5 feet 7:32am Height (Inches) 3.00 inches 08/05/2017 7:32am Height (Calculated Centimeters) 160. 675982 cm 08/05/2017 7:32am Weight (Pounds) 123 pounds 08/05/2017 7:32am Weight (Ounces) 0.0 oz 0 08/05/2017 7:32am Weight (Calculated Grams) 54587.86 gm 08/05/2017 7:32am Weight (Calculated Kilograms) 55.791 862 kilograms 08/05/2017 7:32am Calculated BMI 21.8 07/13 7:32am Vital Response Date/Time Temperature (Fahrenheit) 98.0 degree s F (97.6 - 99.5) 08/05/2017 9:40am Temperature (Calculated Celsius) 36. 29386 degrees C (36.4 - 37.5) 08/05/2017 9:40am Temperature Source Skin 08/05/2017 9:40am Pulse Rate (adult) 60 bpm (60 - 90) 08/05/2017 9:40am Respiratory Rate 16 bpm (12 - 24) 08/05/2017 9:40am O2 Sat by Pulse Oximetry 93 % (88 - 100) 08/05/2017 9:40am Blood Pressure 182/66 mm Hg 08/05/2017 9:40am Blood Pressure Mean 125 mm Hg (65 - 110) 08/05/2017 7:34am Pain Numeric Pain Scale 0-No Pain 08/05/2017 9:40am Pain Intensity 0 2017 9:15am Height (Feet) 5 feet 7:32am Height (Inches) 3.00 inches 08/05/2017 7:32am Height (Calculated Centimeters) 160. 674142 cm 08/05/2017 7:32am Weight (Pounds) 123 pounds 08/05/2017 7:32am Weight (Ounces) 0.0 oz 0 08/05/2017 7:32am Weight (Calculated Grams) 17442.86 gm 08/05/2017 7:32am Weight (Calculated Kilograms) 55.791 862 kilograms 08/05/2017 7:32am Calculated BMI 21.8 07/13 7:32am Functional Status The data below is from unstructured sourcesNo functional status results.No functional status information available.No functional status information available. Mental Status No Information Advance Directives Directive Response Recor ded Date/Time Advance Directives No 9:40am Health Care Power of Logistics Specialist No 11/14/13 9:40am Organ Donor No 11/14/13 9:40am Resuscitation Status Full Code 11/14/13 9:40am Directive Response Recor ded Date/Time Advance Directives No 7:28am Health Care Power of Logistics Specialist Y - [facility] 08/05/17 7:28am Organ Donor No 08/05/17 7:28am Resuscitation Status Full Code 08/05/17 7:28am Discharge Instructions No hospital discharge instructions.No hospital discharge instruction information available. Additional Source Comments This clinical document has been generated using [employer] software that has been certified by the Office of the National Coordinator for Health Information Technology (ONC 15.99.04.3023.Diam.31.00.0.092496) and the National Committee for [employer] (NCQA, as an eMeasure certified technology). FOR RECORDS PERTAINING TO PATIENTS WHO ARE OR HAVE BEEN ENROLLED IN A CHEMICAL D EPENDENCY/SUBSTANCE ABUSE PROGRAM, SOME INFORMATION MAY BE OMITTED. This clinica l summary was aggregated from multiple sources. Caution should be exercised in using it in the provision of clinical care. This summary normalizes information from multiple sources, and as a consequence, information in this document may ma terially change the coding, format and clinical context of patient data. In arianne tion, data may be omitted in some cases. CLINICAL DECISIONS SHOULD BE BASED ON T HE PRIMARY CLINICAL RECORDS. [employer] provides no warranty or guara ntee of the accuracy or completeness of information in this document.The followi ng information is based on time limited clinical information
--- OUTSIDE RECORDS SUMMARY | 2019-10-21 03:03 | XMS REPORT | Continuity of Care Document ---
Author Organization Unknown Address Unknown Phone Unavailable Allergies Active Description Code Type Severity Reaction Onset Reported/Identified Relationship to Patient Clinical Status Yes amoxicillin [id number] Drug Aller gy Unknown N/A 10/24/2015 Yes erythromycin base [id number] Drug Allergy Unknown N/A 10/24/2015 Medications There is no data. Problems Date Dx Coded Attending Type Code Diagnosis Diagnosed By 11/14/2013 GHASSAN DEL CID, LIANA Presley Ot 562.10 DIVERTICULOSIS COLON (W/O MENT OF HEMORR 10/12/2014 BAIODESSA MASSEY L [employer] Ot 272.4 10/12/2014 BAIMAODESSA L [employer] Ot 401.9 10/12/2014 BAIMA ODESSA L [employer] Ot 414.9 10/12/2014 BAIMA, ODESSA L [employer] Ot 447.9 10/12/2014 BAIMA, ODESSA L [employer] Ot 780.79 10/19/2014 BAIMA, ODESSA L [employer] Ot 272.4 10/19/2014 BAIMA, ODESSA L [employer] Ot 401.9 10/19/2014 BAIMA, ODESSA L [employer] Ot 414.9 10/19/2014 BAIMA, ODESSA L [employer] Ot 447.9 10/19/2014 BAISHILPA ODESSA L [employer] Ot 780.79 06/08/2015 JAJA GAMEZ DO Ot M47.816 06/08/2015 JAJA GAMEZ DO Ot M85.88 06/14/2015 JAJA GAMEZ DO Ot M47.816 06/14/2015 JAJA GAMEZ DO Ot M85.88 08/01/2015 Ot M81.0 AGE- RELATED OSTEOPOROSIS W/O CURRENT PAT 10/04/2015 JAJA GAMEZ DO Ot J44.9 CHRONIC OBSTRUCTIVE PULMONARY DISEASE, U 10/04/2015 JAJA GAMEZ DO Ot J44.9 CHRONIC OBSTRUCTIVE PULMONARY DISEASE, U 10/29/2015 JAJA GAMEZ DO Ot D64.9 ANEMIA, UNSPECIFIED 10/29/2015 JOSELIBERTY JAJA PEOPLES Ot E78.0 PURE HYPERCHOLESTEROLEMIA 10/29/2015 JAJA GAMEZ DO Ot I10 ESSENTIAL (PRIMARY) HYPERTENSION 10/29/2015 JAJA GAMEZ DO Ot I25.10 ATHSCL HEART DISEASE OF [place] CORONARY 10/29/2015 DANNILYNNETTE JAJA PEOPLES Ot K56.41 FECAL IMPACTION 10/29/2015 DANNILYNNETTE JAJA PEOPLES Ot K62.89 OTHER SPECIFIED DISEASES OF ANUS AND REC 10/29/2015 JOSELIBERYT JAJA PEOPLES Ot M81.0 AGE-RELATED OSTEOPOROSIS W/O CURRENT PAT 10/29/2015 JOSELIBERTY JAJA PEOPLES Ot N39.0 URINARY TRACT INFECTION, SITE NOT SPECIF 10/29/2015 JAJA GAMEZ DO Ot R53.1 WEAKNESS 10/30/2015 JAJA GAMEZ DO Ot J44.9 CHRONIC OBSTRUCTIVE PULMONARY DISEASE, U 11/13/2015 JAJA GAMEZ DO Ot J44.9 CHRONIC OBSTRUCTIVE PULMONARY DISEASE, U 01/29/2016 Ot 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 01/29/2016 Ot 397.0 TRIC USPID VALVE DISEASE 01/29/2016 Ot 401.9 HYPE RTENSION NOS 01/29/2016 Ot 414.00 COR ON ATHEROSCLER NOS TYPE VESSEL, NATIV 01/29/2016 Ot 429.3 CARD IOMEGALY 01/29/2016 GHASSAN DEL CID, LIANA Presley Ot V72.84 EXAM PRE-OPERATIVE NOS 01/29/2016 ODESSA TUBBS [employer] Ot 272.4 HYPERLIPIDEMIA NEC/NOS 01/29/2016 ODESSA TUBBS [employer] Ot 401.9 HYPERTENSION NOS 01/29/2016 ODESSA TUBBS L [employer] Ot 414.9 CHR ISCHEMIC HRT DIS NOS 01/29/2016 ODESSA TUBBS L [employer] Ot 447.9 ARTERIAL DISEASE NOS 01/29/2016 ODESSA TUBBS [employer] Ot 780.79 OTH MALAISE FATIGUE 01/29/2016 JAJA GAMEZ DO Ot M47.816 SPONDYLOSIS W/O MYELOPATHY OR RADICULOPA 01/29/2016 JAJA GAMEZ DO Ot M85.88 OTH DISRD OF BONE DENSITY AND STRUCTURE, 01/29/2016 Ot M81.0 AGE- RELATED OSTEOPOROSIS W/O CURRENT PAT 01/29/2016 VERA PEOPLESJAJA Ot J44.9 CHRONIC OBSTRUCTIVE PULMONARY DISEASE, U 01/30/2016 VERA PEOPLESJAJA Ot I25.10 ATHSCL HEART DISEASE OF [place] CORONARY 01/30/2016 VERA PEOPLES, JAJA John Ot R06.02 SHORTNESS OF BREATH 02/19/2016 VERA PEOPLES, JAJA John Ot I25.10 ATHSCL HEART DISEASE OF [place] CORONARY 02/19/2016 VERA PEOPLES, JAJA John Ot R06.02 SHORTNESS OF BREATH 02/29/2016 VERA PEOPLES, JAJA John Ot I25.10 ATHSCL HEART DISEASE OF [place] CORONARY 02/29/2016 VERA PEOPLESJAJA Ot R06.02 SHORTNESS OF BREATH 04/23/2016 ODESSA TUBBS [employer] Ot I73.9 PERIPHERAL VASCULAR DISEASE, UNSPECIFIED 04/23/2016 ODESSA TUBBS [employer] Ot I73.9 PERIPHERAL VASCULAR DISEASE, UNSPECIFIED 05/14/2016 ODESSA TUBBS [employer] Ot I73.9 PERIPHERAL VASCULAR DISEASE, UNSPECIFIED 05/21/2016 ODESSA TUBBS L [employer] Ot I73.9 PERIPHERAL VASCULAR DISEASE, UNSPECIFIED 06/03/2016 Ot 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 06/03/2016 Ot 397.0 TRIC USPID VALVE DISEASE 06/03/2016 Ot 401.9 HYPE RTENSION NOS 06/03/2016 Ot 414.00 COR ON ATHEROSCLER NOS TYPE VESSEL, NATIV 06/03/2016 Ot 429.3 CARD IOMEGALY 06/03/2016 GHASSAN DEL CID, LIANA Presley Ot V72.84 EXAM PRE-OPERATIVE NOS 06/03/2016 ODESSA TUBBS L [employer] Ot 272.4 HYPERLIPIDEMIA NEC/NOS 06/03/2016 ODESSA TUBBS L [employer] Ot 401.9 HYPERTENSION NOS 06/03/2016 ODESSA TUBBS L [employer] Ot 414.9 CHR ISCHEMIC HRT DIS NOS 06/03/2016 ODESSA TUBBS L [employer] Ot 447.9 ARTERIAL DISEASE NOS 06/03/2016 ODESSA TUBBS L [employer] Ot 780.79 OTH MALAISE FATIGUE 06/03/2016 JAJA GAMEZ DO Ot M47.816 SPONDYLOSIS W/O MYELOPATHY OR RADICULOPA 06/03/2016 JAJA GAMEZ DO A Ot M85.88 OTH DISRD OF BONE DENSITY AND STRUCTURE, 06/03/2016 Ot M81.0 AGE- RELATED OSTEOPOROSIS W/O CURRENT PAT 06/03/2016 VERA PEOPLES, JAJA John Ot J44.9 CHRONIC OBSTRUCTIVE PULMONARY DISEASE, U 06/03/2016 JOSELENKAPADIA, JAJA John Ot I25.10 ATHSCL HEART DISEASE OF [place] CORONARY 06/03/2016 JOSELENLYNNETTE DO, JAJA John Ot R06.02 SHORTNESS OF BREATH 06/03/2016 ODESSA TUBBS Ot I73.9 PERIPHERAL VASCULAR DISEASE, UNSPECIFIED 06/15/2017 GELLENDER DO, JAJA John Ot R05 COUGH 06/15/2017 GELLENDER DO, JAJA John Ot R09.89 OTH SYMPTOMS AND SIGNS INVOLVING THE CIR 06/15/2017 GELLENDER DO, JAJA John Ot R91.1 SOLITARY PULMONARY NODULE 06/16/2017 GELLENDER DO, JAJA John Ot R05 COUGH 06/16/2017 GELLENDER DO, JAJA John Ot R91.1 SOLITARY PULMONARY NODULE 06/16/2017 GELLENDER DO, JAJA John Ot N28.9 DISORDER OF KIDNEY AND URETER, UNSPECIFI 06/19/2017 GELLENDER DO, JAJA John Ot J98.4 OTHER DISORDERS OF LUNG 06/19/2017 GELLENDER DO, JAJA John Ot R91.1 SOLITARY PULMONARY NODULE 06/22/2017 GELLENDER DO, JAJA John Ot J98.4 OTHER DISORDERS OF LUNG 06/22/2017 GELLENDER DO, JAJA John Ot R91.1 SOLITARY PULMONARY NODULE 06/23/2017 GELLENDER DO, JAJA John Ot J18.9 PNEUMONIA, UNSPECIFIED ORGANISM 07/03/2017 GELLENDER DO, JAJA John Ot R05 COUGH 07/03/2017 GELLENDER DO, JAJA John Ot R09.89 OTH SYMPTOMS AND SIGNS INVOLVING THE CIR 07/03/2017 GELLENDER DO, JAJA John Ot R91.1 SOLITARY PULMONARY NODULE 07/03/2017 GELLENDER DO, JAJA John Ot N28.9 DISORDER OF KIDNEY AND URETER, UNSPECIFI 07/08/2017 GELLENDER DO, JAJA John Ot R05 COUGH 07/08/2017 GELLENDER DO, JAJA John Ot R09.89 OTH SYMPTOMS AND SIGNS INVOLVING THE CIR 07/08/2017 GELLENDER DO, JAJA John Ot R91.1 SOLITARY PULMONARY NODULE 07/10/2017 VERA PEOPLES, JAJA John Ot J18.9 PNEUMONIA, UNSPECIFIED ORGANISM 07/10/2017 VERA DO, JAJA John Ot R91.8 OTHER NONSPECIFIC ABNORMAL FINDING OF ANNIKA 07/10/2017 VERA PEOPLES, JAJA John Ot J18.9 PNEUMONIA, UNSPECIFIED ORGANISM 07/10/2017 VERA PEOPLES, JAJA John Ot R91.8 OTHER NONSPECIFIC ABNORMAL FINDING OF ANNI[place] 07/14/2017 VERA PEOPLES, JAJA John Ot J18.9 PNEUMONIA, UNSPECIFIED ORGANISM 07/14/2017 JOSELENLYNNETTE DO, JAJA John Ot J98.4 OTHER DISORDERS OF LUNG 07/14/2017 VERA PEOPLES, JAJA John Ot R91.1 SOLITARY PULMONARY NODULE 07/16/2017 VERA PEOPLES, JAJA John Ot J18.9 PNEUMONIA, UNSPECIFIED ORGANISM 07/20/2017 VERA PEOPLES, JAJA John Ot J98.4 OTHER DISORDERS OF LUNG 07/20/2017 VERA PEOPLES, JAJA John Ot R91.1 SOLITARY PULMONARY NODULE 07/21/2017 GHASSAN DEL CID, LIANA Presley Ot V72.84 EXAM PRE-OPERATIVE NOS 07/21/2017 ODESSA TUBBS [employer] Ot 272.4 HYPERLIPIDEMIA NEC/NOS 07/21/2017 ODESSA TUBBS L [employer] Ot 401.9 HYPERTENSION NOS 07/21/2017 ODESSA TUBBS [employer] Ot 414.9 CHR ISCHEMIC HRT DIS NOS 07/21/2017 ODESSA TUBBS L [employer] Ot 447.9 ARTERIAL DISEASE NOS 07/21/2017 ODESSA TUBBS [employer] Ot 780.79 OTH MALAISE FATIGUE 07/21/2017 VERA PEOPLESJAJA Ot M47.816 SPONDYLOSIS W/O MYELOPATHY OR RADICULOPA 07/21/2017 VERA PEOPLESJAJA Ot M85.88 OTH DISRD OF BONE DENSITY AND STRUCTURE, 07/21/2017 Ot M81.0 AGE- RELATED OSTEOPOROSIS W/O CURRENT PAT 07/21/2017 VERA PEOPLESJAJA Ot J44.9 CHRONIC OBSTRUCTIVE PULMONARY DISEASE, U 07/21/2017 VERA PEOPLESJAJA Ot I25.10 ATHSCL HEART DISEASE OF [place] CORONARY 07/21/2017 VERA PEOPLESJAJA Ot R06.02 SHORTNESS OF BREATH 07/21/2017 [place]ON TUBBSHER L [facility] Ot I73.9 PERIPHERAL VASCULAR DISEASE, UNSPECIFIED 07/21/2017 GELLENDER DO, JAJA Dora Ot R05 COUGH 07/21/2017 GELLENDER DO, JAJA John Ot R09.89 OT SYMPTOMS AND SIGNS INVOLVING THE CIR 07/21/2017 DANNIDER DO, JAJA John Ot R91.1 SOLITARY PULMONARY NODULE 07/21/2017 GELLENDER DO, JAJA John Ot J98.4 OTHER DISORDERS OF LUNG 07/21/2017 GELLENDER DO, JAJA John Ot R91.1 SOLITARY PULMONARY NODULE 07/21/2017 GELLENDER DO, JAJA John Ot N28.9 DISORDER OF KIDNEY AND URETER, UNSPECIFI 07/21/2017 GELLENDER DO, JAJA John Ot J18.9 PNEUMONIA, UNSPECIFIED ORGANISM 07/21/2017 GELLENDER DO, JAJA John Ot J18.9 PNEUMONIA, UNSPECIFIED ORGANISM 07/21/2017 GELLENDER DO, JAJA John Ot R91.8 OTHER NONSPECIFIC ABNORMAL FINDING OF ANNIKA 07/22/2017 DANNIDER JAJA Ot R91.8 OTHER NONSPECIFIC ABNORMAL FINDING OF [place] 07/28/2017 GERDA GONZALEZ DO Ot J18. 9 PNEUMONIA, UNSPECIFIED ORGANISM 07/28/2017 GERDA GONZALEZ DO Ot R91. 8 OTHER NONSPECIFIC ABNORMAL FINDING OF [place]NI[place] 07/28/2017 GERDA GONZALEZ DO Ot Z01.818 ENCOUNTER FOR OTHER PREPROCEDURAL EXAMIN 07/29/2017 GERDA GONZALEZ DO Ot J18. 9 PNEUMONIA, UNSPECIFIED ORGANISM 07/29/2017 GERDA GONZALEZ DO Ot R91. 8 OTHER NONSPECIFIC ABNORMAL FINDING OF [place] 07/29/2017 GERDA GONZALEZ DO Ot Z01.818 ENCOUNTER FOR OTHER PREPROCEDURAL EXAMIN 08/03/2017 JOSELENDER DOJAJA Ot J18.9 PNEUMONIA, UNSPECIFIED ORGANISM 08/03/2017 GELLENDER DO, JAJA John Ot R91.8 OTHER NONSPECIFIC ABNORMAL FINDING OF [place]NI[place] 08/05/2017 GERDA GONZALEZ DO Ot J18. 9 PNEUMONIA, UNSPECIFIED ORGANISM 08/05/2017 GERDA GONZALEZ DO Ot J30. 2 OTHER SEASONAL ALLERGIC RHINITIS 08/05/2017 GERDA GONZALEZ DO Ot R91. 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 8 FAMILY HISTORY OF MALIGNANT NEOPLASM OF 08/05/2017 GERDA GONZALEZ DO Ot Z88. 1 ALLERGY STATUS TO OTHER ANTIBIOTIC AGENT 08/05/2017 GELLENDER DOAJJA Ot J18.9 PNEUMONIA, UNSPECIFIED ORGANISM 08/05/2017 GELLENDER DO, JAJA A Ot R91.8 OTHER NONSPECIFIC ABNORMAL FINDING OF ANNI[place] 08/07/2017 GERDA GONZALEZ DO Ot J18. 9 PNEUMONIA, UNSPECIFIED ORGANISM 08/07/2017 GERDA GONZALEZ DO Ot J30. 2 OTHER SEASONAL ALLERGIC RHINITIS 08/07/2017 GERDA GONZALEZ DO Ot R91. 8 OTHER NONSPECIFIC ABNORMAL FINDING OF [place]NI[place] 08/07/2017 GERDA GONZALEZ DO Ot Z79.899 OTHER [facility] (CURRENT) DRUG THERAPY 08/07/2017 GERDA GONZALEZ DO Ot Z80. 8 FAMILY HISTORY OF MALIGNANT NEOPLASM OF 08/07/2017 GERDA GONZALEZ DO Ot Z88. 1 ALLERGY STATUS TO OTHER ANTIBIOTIC AGENT 08/11/2017 JAJA GAMEZ DO Ot R91.8 OTHER NONSPECIFIC ABNORMAL FINDING OF [place]NI[place] 08/11/2017 GERDA GONZALEZ DO Ot J18. 9 PNEUMONIA, UNSPECIFIED ORGANISM 08/11/2017 GERDA GONZALEZ DO Ot J30. 2 OTHER SEASONAL ALLERGIC RHINITIS 08/11/2017 GERDA GONZALEZ DO Ot R91. 8 OTHER NONSPECIFIC ABNORMAL FINDING OF ANNI[place] 08/11/2017 GERDA GONZALEZ DO Ot Z79.899 OTHER RUNNING RIGGER (CURRENT) DRUG THERAPY 08/11/2017 GERDA GONZALEZ DO Ot Z80. 8 FAMILY HISTORY OF MALIGNANT NEOPLASM OF 08/11/2017 GERDA GONZALEZ DO Ot Z88. 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 10/07/2017 BAISHILPA, ODESSA L [employer] Ot I34.0 NONRHEUMATIC MITRAL (VALVE) INSUFFICIENC 10/13/2017 BAISHILPA, ODESSA L [employer] Ot I07.1 RHEUMATIC TRICUSPID INSUFFICIENCY 10/13/2017 BAIMA, ODESSA L [employer] Ot 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 10/13/2017 BAISHILPA, ODESSA L [employer] Ot I34.0 NONRHEUMATIC MITRAL (VALVE) INSUFFICIENC 11/10/2017 GHASSAN DEL CID, LIANA Presley Ot V72.84 EXAM PRE-OPERATIVE NOS 11/10/2017 MATTEOSHILPAODESSA L [employer] Ot 272.4 HYPERLIPIDEMIA NEC/NOS 11/10/2017 MATTEOSHILPA, ODESSA L [employer] Ot 401.9 HYPERTENSION NOS 11/10/2017 SULY ODESSA L [employer] Ot 414.9 CHR ISCHEMIC HRT DIS NOS 11/10/2017 SULY ODESSA L [employer] Ot 447.9 ARTERIAL DISEASE NOS 11/10/2017 SULY ODESSA L [employer] Ot 780.79 OTH MALAISE FATIGUE 11/10/2017 JAJA GAMEZ DO Ot M47.816 SPONDYLOSIS W/O MYELOPATHY OR RADICULOPA 11/10/2017 JAJA GAMEZ DO Ot M85.88 OTH DISRD OF BONE DENSITY AND STRUCTURE, 11/10/2017 Ot M81.0 AGE- RELATED OSTEOPOROSIS W/O CURRENT PAT 11/10/2017 JAJA GAMEZ DO Ot J44.9 CHRONIC OBSTRUCTIVE PULMONARY DISEASE, U 11/10/2017 JAJA GAMEZ DO Ot I25.10 ATHSCL HEART DISEASE OF [place] CORONARY 11/10/2017 JAJA GAMEZ DO Ot R06.02 SHORTNESS OF BREATH 11/10/2017 ODESSA TUBBS L [employer] Ot I73.9 PERIPHERAL VASCULAR DISEASE, UNSPECIFIED 11/10/2017 JAJA GAMEZ DO Ot R05 COUGH 11/10/2017 JAJA GAMEZ DO Ot R09.89 OTH SYMPTOMS AND SIGNS INVOLVING THE CIR 11/10/2017 JAJA GAMEZ DO Ot R91.1 SOLITARY PULMONARY NODULE 11/10/2017 JOSELENDER DO, JAJA John Ot J98.4 OTHER DISORDERS OF LUNG 11/10/2017 VERA DO, JAJA John Ot R91.1 SOLITARY PULMONARY NODULE 11/10/2017 JOSELENDER DO, JAJA John Ot N28.9 DISORDER OF KIDNEY AND URETER, UNSPECIFI 11/10/2017 VERA DO, JAJA John Ot J18.9 PNEUMONIA, UNSPECIFIED ORGANISM 11/10/2017 JOSELENDER DO, JAJA John Ot J18.9 PNEUMONIA, UNSPECIFIED ORGANISM 11/10/2017 JOSELENDER DO, JAJA John Ot R91.8 OTHER NONSPECIFIC ABNORMAL FINDING OF ANNIKA 11/10/2017 VERA PEOPLES, JAJA John Ot R91.8 OTHER NONSPECIFIC ABNORMAL FINDING OF ANNI[place] 11/10/2017 ODESSA TUBBS [employer] Ot I07.1 RHEUMATIC TRICUSPID INSUFFICIENCY 11/10/2017 ODESSA TUBBS [employer] Ot 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 11/10/2017 ODESSA TUBBS [employer] Ot I34.0 NONRHEUMATIC MITRAL (VALVE) INSUFFICIENC 12/01/2017 BROOKE LÓPEZ [employer] Ot J30.2 OTHER SEASONAL ALLERGIC RHINITIS 12/01/2017 BROOKE LÓPEZ [employer] Ot R91.8 OTHER NONSPECIFIC ABNORMAL FINDING OF ANNI[place] 12/11/2017 BROOKE LÓPEZ [employer] Ot J30.2 OTHER SEASONAL ALLERGIC RHINITIS 12/11/2017 BROOKE LÓPEZ [employer] Ot R91.8 OTHER NONSPECIFIC ABNORMAL FINDING OF ANNIKA 02/24/2018 BROOKE LÓPEZ [employer] Ot A31.0 PULMONARY MYCOBACTERIAL INFECTION 02/24/2018 BROOKE LÓPEZ [employer] Ot R06.00 DYSPNEA, UNSPECIFIED 02/24/2018 BROOKE LÓPEZ [employer] Ot R91.8 OTHER NONSPECIFIC ABNORMAL FINDING OF ANNIKA 02/25/2018 BROOKE LÓPEZ [employer] Ot A31.0 PULMONARY MYCOBACTERIAL INFECTION 02/25/2018 BROOKE LÓPEZ [employer] Ot R06.00 DYSPNEA, UNSPECIFIED 02/25/2018 BROOKE LÓPEZ [employer] Ot R91.8 OTHER NONSPECIFIC ABNORMAL FINDING OF ANNIKA 02/26/2018 BROOKE LÓPEZ [employer] Ot A31.0 PULMONARY MYCOBACTERIAL INFECTION 02/26/2018 BROOKE LÓPEZ [employer] Ot R06.00 DYSPNEA, UNSPECIFIED 02/26/2018 BROOKE LÓPEZ [employer] Ot R91.8 OTHER NONSPECIFIC ABNORMAL FINDING OF ANNIKA 03/22/2018 BROOKE LÓPEZ [employer] Ot A31.0 PULMONARY MYCOBACTERIAL INFECTION 03/22/2018 BROOKE LÓPEZ [employer] Ot R06.00 DYSPNEA, UNSPECIFIED 03/22/2018 BROOKE LÓPEZ [employer] Ot R91.8 OTHER NONSPECIFIC ABNORMAL FINDING OF ANNIKA 03/31/2018 FERNANDO DEL CID FACC, ALI FACP CCDS Ot E78.5 HYPERLIPIDEMIA, UNSPECIFIED 03/31/2018 FERNANDO DEL CID FAC, ALI FACP CCDS Ot I10 ESSENTIAL (PRIMARY) HYPERTENSION 03/31/2018 FERNANDO DEL CID [facility], ALI FACP CCDS Ot I25.10 ATHSCL HEART DISEASE OF [place] CORONARY 03/31/2018 FERNANDO DEL CID [facility], ALI FACP CCDS Ot I65.29 OCCLUSION AND STENOSIS OF UNSPECIFIED CA 04/21/2018 FERNANDO DEL CID [facility], ALI FACP CCDS Ot E78.5 HYPERLIPIDEMIA, UNSPECIFIED 04/21/2018 FERNADNO DEL CID [facility], ALI FACP CCDS Ot I10 ESSENTIAL (PRIMARY) HYPERTENSION 04/21/2018 FERNANDO DEL CID [facility], ALI FACP CCDS Ot I25.10 ATHSCL HEART DISEASE OF [place] CORONARY 04/21/2018 FERNANDO DEL CID [facility], ALI FACP CCDS Ot I65.29 OCCLUSION AND STENOSIS OF UNSPECIFIED CA 04/29/2018 FERNANDO DEL CID [facility], ALI FACP CCDS Ot E78.5 HYPERLIPIDEMIA, UNSPECIFIED 04/29/2018 FERNANDO DEL CID [facility], ALI FACP CCDS Ot I10 ESSENTIAL (PRIMARY) HYPERTENSION 04/29/2018 FERNANDO DEL CID [facility], ALI FACP CCDS Ot I25.10 ATHSCL HEART DISEASE OF [place] CORONARY 04/29/2018 FERNANDO DEL CID [facility], ALI FACP CCDS Ot I65.29 OCCLUSION AND STENOSIS OF UNSPECIFIED CA 03/08/2019 BROOKE LÓPEZ APRN Ot A31.0 PULMONARY MYCOBACTERIAL INFECTION 03/08/2019 BROOKE LÓPEZ [employer] Ot J30.2 OTHER SEASONAL ALLERGIC RHINITIS 03/08/2019 BROOKE LÓPEZ [employer] Ot J47.9 BRONCHIECTASIS, UNCOMPLICATED 03/08/2019 MARIBEL, BROOKE E [employer] Ot R91.8 OTHER NONSPECIFIC ABNORMAL FINDING OF ANNIKA Procedures There is no data. Results Test Result Range Complete blood count (CBC) with automate d white blood cell (WBC) differential - 06/11/17 14:05 Blood leukocytes automated count (number/volume) 9.2 10*3/uL 4.3-11.0 Blood erythrocytes automated count (number/volume) 4.24 10*6/uL 4.35-5.85 Venous blood hemoglobin measurement (mass/volume) 13.8 g/dL 11.5-16.0 Blood hematocrit (volume fraction) 40 % 35-52 Automated erythrocyte mean corpuscular volume 94 [ foz_us] 80-99 Automated erythrocyte mean corpuscular h emoglobin (mass per erythrocyte) 33 pg 25-34 Automated erythrocyte mean corpuscular h emoglobin concentration measurement (mass/volume) 35 g/dL 32-36 Automated erythrocyte distribution width ratio 12. 6 % 10.0- 14.5 Automated blood platelet count (count/volume) 238 10*3/uL 130-400 Automated blood platelet mean volume measurement 9.5 [foz_us] 7.4-10.4 Automated blood neutrophils/100 leukocytes 55 % 42-75 Automated blood lymphocytes/100 leukocytes 29 % 12-44 Blood monocytes/100 leukocytes 10 % 0-12 Automated blood eosinophils/100 leukocytes 6 % 0-10 Automated blood basophils/100 leukocytes 0 % 0-10 Blood neutrophils automated count (number/volume) 5.0 10*3 1.8-7.8 Blood lymphocytes automated count (number/volume) 2.7 10*3 1.0-4.0 Blood monocytes automated count (number/volume) 0. 9 10*3 0.0-1.0 Automated eosinophil count 0.5 10*3/uL 0 .0-0.3 Automated blood basophil count (count/volume) 0.0 10*3/uL 0.0-0.1 [id number] - 06/12/17 11:40 Serum or plasma urea nitrogen measurement (mass/volume ) 17 mg/dL 7-18 Serum or plasma creatinine measurement (mass/volume) 0.90 mg/dL 0.60-1.30 Serum or plasma urea nitrogen/creatinine mass ratio 19 NRG Serum or plasma creatinine measurement w ith calculation of estimated glomerular filtration rate 60 NRG Sputum Gram stain - 08/05/17 08:10 GRAM STAIN SPUTUM ON DIRECT GRAM STAIN NRG Bacteria identification in bronchial spe cimen by aerobe culture - 08/05/17 08:10 Bacteria identification in bronchial specimen by aerob e culture NORMAL NRG Fungus culture - 08/05/17 08:10 FUNGUS REPORT NO FUNGUS GROWTH OBSERVED NRG Mycobacterium species detection by organ ism specific culture - 08/05/17 08:10 QUANTITY OF GROWTH . NRG Mycobacterium species detection by organism specific c ulture SEE COMMEN NRG Fungus culture - 08/05/17 08:10 FUNGUS REPORT NO FUNGUS GROWTH OBSERVED NRG Encounters ACCT No. Visit Date/Time Discharge Status Pt. Type Provider Facility Loc./Unit Complaint [id number] 01/23/2014 11:08:42 01/23/2014 23:59: 59 CLS Outpatient Deric Hadley [id number] 02/15/2019 13:13:00 23:59:59 CLS Outpatient BROOKE LÓPEZ APRN [facility] RAD LUNG MASS [id number] 02/07/2019 09:01:00 019 23:59:59 CLS Preadmit BROOKE LÓPEZ APRN [facility] RAD OTHER NONSPECIF IC ABN FINDING OF LUNG FIELD [id number] 03/30/2018 07:04:00 018 23:59:59 CLS Outpatient FERNANDO DEL CID FACC, ROSETTA BASSP CC DS [facility] CARD CAD,CAROTID ARTERY NARROWING,HTN [id number] 02/23/2018 08:41:00 018 23:59:59 CLS Outpatient BROOKE LÓPEZ APRN [facility] RAD LUNG MASS,DYSPNEA,MYCOBACTERIUM AVIUM COMPLEX [id number] 11/11/2017 08:45:00 018 23:59:59 CLS Outpatient BROOKE LÓPEZ APRN [facility] RAD R91.8 LUNG MASS [id number] 09/14/2017 10:32:00 018 23:59:59 CLS Outpatient ODESSA TUBBS [facility] CARD I07.1 TR [id number] 08/05/2017 06:55:00 018 09:40:00 DIS Outpatient CARLOS PEOPLES GERDA Fernandez [facility] ENDO LUNG MASS/PNEUMONIA [id number] 07/28/2017 11:02:00 018 15:02:00 DIS Outpatient CARLOS PEOPLES GERDA Fernandez [facility] PREOP BRONCHOSCOPY [id number] 07/21/2017 07:39:00 018 23:59:59 CLS Outpatient DANNIKAPADIAJAJA Dora [facility] RAD R91.8 ABN FINDI NG OF LUNG FIELD [id number] 07/09/2017 09:34:00 23:59:59 CLS Outpatient DANNIKAPADIA JAJA Dora [facility] RAD PNEUMONIA [id number] 06/22/2017 08:12:00 018 23:59:59 CLS Outpatient JOSEAYAKAKAPADIA JAJA Dora [facility] RAD PNEUMONIA [id number] 06/15/2017 14:54:00 018 23:59:59 CLS Outpatient JOSELIBERTY PEOPLES JAJA Dora [facility] RAD PULMONARY NODUL E [id number] 06/12/2017 11:29:00 018 23:59:59 CLS Outpatient DANNIKAPADIA JAJA John [facility] LAB N18.9 [id number] 06/11/2017 13:45:00 018 23:59:59 CLS Outpatient DANNIKAPADIA JAJA Dora [facility] RAD COUGH CONGEST ION [id number] 04/22/2016 13:00:00 017 23:59:59 CLS Outpatient ODESSA TUBBS [facility] RAD CLAUDICATION [id number] 01/29/2016 07:13:00 016 23:59:59 CLS Outpatient DANNIJAJA CHURCH DO [facility] CARD CAD,SOB [id number] 10/24/2015 15:16:00 016 16:48:00 DIS Inpatient DANNIJAJA CHURCH DO [facility] 4TH LEUKOCYTOSIS,PROCTSTIC,UTI,ABD PX,FECAL IMPACTION [id number] 10/03/2015 09:36:00 016 23:59:59 CLS Outpatient JAJA GAMEZ DO [facility] RAD COUGH, RESP INF ECTION [id number] 05/14/2015 11:32:00 016 23:59:59 CLS Outpatient JAJA GAMEZ DO [facility] RAD BACK PAIN [id number] 09/21/2014 07:29:00 015 23:59:59 CLS Outpatient ODESSA TUBBS [facility] CARD FATIGUE,CAD, HTN,HYPERLIPIDEMIA CAROTID ARTERY DIS [id number] 11/14/2013 09:10:00 014 12:10:00 DIS Outpatient LIANA FERRELL MD [facility] ABDOMINAL PAIN;CHANGE IN BOWEL HABITS;HISTORY POLY [id number] 11/10/2013 07:13:00 014 23:59:59 CLS Outpatient LIANA FERRELL MD [facility] PREOP ABDOMINAL PAIN;CHANGE IN BOWEL HABITS;HISTORY POLY [id number] 01/29/2016 07:12:00 Document Registration [id number] 07/12/2015 09:23:00 Document Registration [id number] 01/05/2012 10:58:00 Document Registration [id number] 12/12/2015 13:26:43 12/12/2015 23:59:5 9 CLS Outpatient
[2019-10-21] MEDS ORDERED: LACTATED RINGERS 1,000 ML IV ONE (03:24)
[2019-10-21] MEDS ORDERED: ONDANSETRON 4 MG/2 ML (SDV) Z0FRAN IVP ONE (03:30)
[2019-10-21 04:03] LABS: BASOPHILS % (AUTO) 0 % (0-10); EOSINOPHILS # (AUTO) 0.1 10^3/uL (0.0-0.3); EOSINOPHILS % (AUTO) 1 % (0-10); HEMATOCRIT 43 % (35-52); HEMOGLOBIN 14.7 G/DL (11.5-16.0); LYMPHOCYTES # (AUTO) 1.3 X 10^3 (1.0-4.0); LYMPHOCYTES % (AUTO) 9 % (12-44); MEAN CORPUSCULAR HEMOGLOBIN 31 PG (25-34); MEAN CORPUSCULAR HGB CONC 34 G/DL (32-36); MEAN CORPUSCULAR VOLUME 92 FL (80-99); MEAN PLATELET VOLUME 9.6 FL (7.4-10.4); MONOCYTES # (AUTO) 1.6 X 10^3 (0.0-1.0); MONOCYTES % (AUTO) 11 % (0-12); NEUTROPHILS # (AUTO) 11.5 X 10^3 (1.8-7.8); NEUTROPHILS % (AUTO) 79 % (42-75); PLATELET COUNT 228 10^3/uL (130-400); RED CELL DISTRIBUTION WIDTH 12.7 % (10.0-14.5); WHITE BLOOD COUNT 14.6 10^3/uL (4.3-11.0)
[2019-10-21 04:12] LABS: ALBUMIN 4.1 GM/DL (3.2-4.5)
[2019-10-21 04:13] LABS: POTASSIUM 4.7 MMOL/L (3.6-5.0)
[2019-10-21 04:14] LABS: CALCIUM 9.2 MG/DL (8.5-10.1)
[2019-10-21 04:15] LABS: TOTAL PROTEIN 7.4 GM/DL (6.4-8.2)
[2019-10-21 04:17] LABS: BILIRUBIN,TOTAL 0.5 MG/DL (0.1-1.0)
[2019-10-21 04:19] LABS: CREATININE SERUM 1.34 MG/DL (0.60-1.30)
[2019-10-21 04:22] LABS: MAGNESIUM 1.8 MG/DL (1.6-2.4)
--- NOTE | 2019-10-21 04:33 | ED GI ---
General Chief Complaint: Abdominal/GI Problems Stated Complaint: DIARRHEA Nursing Triage Note: TO ED VIA [facility] TO ROOM 5 WITH C/O DIARRHEA SINCE 2329. VOMITED X1 PRIOR TO EMS ARRIVAL AT HER HOME. Sepsis Screen: No Definite Risk Source of Information: Patient Exam Limitations: No Limitations History of Present Illness Date Seen by Provider: Oct 21, 2019 Time Seen by Provider: 03:19 Initial Comments This 89-year-old woman presents to the emergency room via EMS after having diarrhea multiple times since 23:30 and emesis x 1. She denies pain or fever. She has no cough or shortness of breath. She was incontinent of some diarrheal stool for EMS. Allergies and Home Medications Allergies Coded Allergies: amoxicillin (Verified Allergy, Unknown, 10/24/15) erythromycin base (Verified Allergy, Unknown, 10/24/15) Home Medications Alendronate Sodium 70 Mg Tablet, 70 MG PO WEEKLY ON THURSDAY, (Reported) Alprazolam 0.25 Mg Tablet, 0.25 MG PO Q8H PRN for ANXIETY, (Reported) Amlodipine Besylate 5 Mg Tablet, 5 MG PO DAILY, (Reported) Aspirin 81 Mg Tablet.dr, 81 MG PO DAILY, (Reported) Atenolol 50 Mg Tablet, 50 MG PO BID, (Reported) Calcium Citrate/Vitamin D3 1 Each Tablet, 2 TAB PO DAILY, (Reported) Lisinopril 40 Mg Tablet, 40 MG PO DAILY@1200, (Reported) Loratadine 10 Mg Tablet, 10 MG PO DAILY, (Reported) Metronidazole 45 Gm Cream..g., 5 GM TP DAILY, (Reported) Ondansetron 4 Mg Tab.rapdis, 4 MG SL Q4H Prescribed by: NEERAJ BRASWELL on 10/21/19 0522 Pravastatin Sodium 80 Mg Tablet, 80 MG PO HS, (Reported) Patient Home Medication List Home Medication List Reviewed: Yes Review of Systems Review of Systems Constitutional: no symptoms reported EENTM: No Symptoms Reported Respiratory: No Symptoms Reported Gastrointestinal: See HPI Genitourinary: No Symptoms Reported Musculoskeletal: no symptoms reported Skin: no symptoms reported Psychiatric/Neurological: No Symptoms Reported Endocrine: No Symptoms Reported Hematologic/Lymphatic: No Symptoms Reported Past Kpyixhz-Dnyjns-Ntnnti Hx Past Med/Social Hx: Reviewed Nursing Past Med/Soc Hx Patient Social History Alcohol Use: Denies Use Recreational Drug Use: No Smoking Status: Never a Smoker Recent Foreign Travel: No Contact w/Someone Who Travel: No Recent Infectious Disease Expo: No Recent Hopitalizations: No Physical Abuse: No Sexual Abuse: No Mistreated: No Fear: No Immunizations Up To Date Date of Pneumonia Vaccine: Apr 13, 2011 Date of Influenza Vaccine: Jan 27, 2017 Seasonal Allergies Seasonal Allergies: Yes Past Medical History Surgeries: Yes (BILATERAL CATARACT REMOVAL, LASER SURGERY ON L EYE , R WRIST ) Coronary Stent Respiratory: Yes (chronic cough, lung nodules) Pneumonia Cardiac: Yes (stent) Coronary Artery Disease, Heart Attack, High Cholesterol, Hypertension Neurological: No Reproductive Disorders: No Female Reproductive Disorders: Denies Sexually Transmitted Disease: No HIV/AIDS: No Gastrointestinal: Yes Diverticulosis, Irritable Bowel Musculoskeletal: Yes Osteoporosis, Arthritis Endocrine: No Cataract Cancer: No Psychosocial: Yes Anxiety Integumentary: Yes (rosacea) Blood Disorders: No Family Medical History FH: emphysema G8 BROTHER G8 BROTHER No Pertinent Family Hx Physical Exam Vital Signs Vital Signs - First Documented 10/21/19 02:55 Temp 36.8 Pulse 79 Resp 18 B/P (MAP) 164/79 (107) O2 Delivery Room Air Capillary Refill : Less Than 3 Seconds Height/Weight/BMI Height: 5'3.00" Weight: 123lbs. 0.0oz. 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, no motor/sensory deficits, alert, normal mood/affect, oriented x 3 Skin: normal color, warm/dry Progress/Results/Core Measures Results/Orders Lab Results Laboratory Tests Test 10/21/19 03:54 10/21/19 04:36 Range/Units White Blood Count 14.6 H 4.3-11.0 10^3/uL Red Blood Count 4.68 4.35-5.85 10^6/uL Hemoglobin 14.7 11.5-16.0 G/DL Hematocrit 43 35-52 % Mean Corpuscular Volume 92 80-99 FL Mean Corpuscular Hemoglobin 31 25-34 PG Mean Corpuscular Hemoglobin Concent 34 32-36 G/DL Red Cell Distribution Width 12.7 10.0-14.5 % Platelet Count 228 130-400 10^3/uL Mean Platelet Volume 9.6 7.4-10.4 FL Neutrophils (%) (Auto) 79 H 42-75 % Lymphocytes (%) (Auto) 9 L 12-44 % Monocytes (%) (Auto) 11 0-12 % Eosinophils (%) (Auto) 1 0-10 % Basophils (%) (Auto) 0 0-10 % Neutrophils # (Auto) 11.5 H 1.8-7.8 X 10^3 Lymphocytes # (Auto) 1.3 1.0-4.0 X 10^3 Monocytes # (Auto) 1.6 H 0.0-1.0 X 10^3 Eosinophils # (Auto) 0.1 0.0-0.3 10^3/uL Basophils # (Auto) 0.0 0.0-0.1 10^3/uL Sodium Level 136 135-145 MMOL/L Potassium Level 4.7 3.6-5.0 MMOL/L Chloride Level 103 98-107 MMOL/L Carbon Dioxide Level 19 L 21-32 MMOL/L Anion Gap 14 5-14 MMOL/L Blood Urea Nitrogen 26 H 7-18 MG/DL Creatinine 1.34 H 0.60-1.30 MG/DL Estimat Glomerular Filtration Rate 37 BUN/Creatinine Ratio 19 Glucose Level 134 H 70-105 MG/DL Calcium Level 9.2 8.5-10.1 MG/DL Corrected Calcium 9.1 8.5-10.1 MG/DL Magnesium Level 1.8 1.6-2.4 MG/DL Total Bilirubin 0.5 0.1-1.0 MG/DL Aspartate Amino Transf (AST/SGOT) 24 5-34 U/L Alanine Aminotransferase (ALT/SGPT) 15 0-55 U/L Alkaline Phosphatase 34 L 40-136 U/L C-Reactive Protein High Sensitivity 0.19 0.00-0.50 MG/DL Total Protein 7.4 6.4-8.2 GM/DL Albumin 4.1 3.2-4.5 GM/DL Urine Color YELLOW Urine Clarity CLEAR Urine pH 6.5 5-9 Urine Specific [place] 1.015 L 1.016-1.022 Urine Protein NEGATIVE NEGATIVE Urine Glucose (UA) NEGATIVE NEGATIVE Urine Ketones NEGATIVE NEGATIVE Urine Nitrite NEGATIVE NEGATIVE Urine Bilirubin NEGATIVE NEGATIVE Urine Urobilinogen 0.2 < = 1.0 MG/DL Urine Leukocyte Esterase TRACE H NEGATIVE Urine RBC (Auto) 2+ H NEGATIVE Urine RBC 0-2 /HPF Urine WBC NONE /HPF Urine Squamous Epithelial Cells RARE /HPF Urine Crystals NONE /LPF Urine Bacteria NEGATIVE /HPF Urine Casts PRESENT /LPF Urine Hyaline Casts 0-2 H /LPF Urine Mucus SMALL H /LPF Urine Culture Indicated NO My Orders Orders - NEERAJ WAYNE MD Cbc With Automated Diff (10/21/19 02:59) Comprehensive Metabolic Panel (10/21/19 02:59) Magnesium (10/21/19 02:59) Ua Culture If Indicated (10/21/19 02:59) Ed Iv/Invasive Line Start (10/21/19 02:59) Ondansetron Injection (Zofran Injectio (10/21/19 03:30) Ed Iv/Invasive Line Start (10/21/19 03:24) Lactated Ringers (Lr 1000 Ml Iv Solution (10/21/19 03:24) Hs C Reactive Protein (10/21/19 04:28) Loperamide Tablet (Imodium Tablet) (10/21/19 05:15) Medications Given in ED Current Medications Medications Dose Ordered Sig/Yolette Route Start Time Stop Time Status Last Admin Dose Admin Lactated Ringer's 1,000 ml @ 0 mls/hr Q0M ONCE IV 10/21/19 03:24 10/21/19 03:27 DC 10/21/19 03:44 999 MLS/HR Loperamide HCl 2 mg ONCE ONCE PO 10/21/19 05:15 10/21/19 05:17 DC 10/21/19 05:42 2 MG Ondansetron HCl 4 mg ONCE ONCE IVP 10/21/19 03:30 10/21/19 03:31 DC 10/21/19 03:44 4 MG Vital Signs/I&O 10/21/19 02:55 Temp 36.8 Pulse 79 Resp 18 B/P (MAP) 164/79 (107) O2 Delivery Room Air Blood Pressure Mean: 107 Progress Progress Note : Time: 05:55 Progress Note Patient was treated with LR, Zofran, and Imodium with no further symptoms after treatment. Workup was relatively unremarkable except for leukocytosis and a mild increasing creatinine. No source of infection was identified. Patient was discharged into the care of her neighbor. Departure Impression Primary Impression: Diarrhea Qualified Codes: R19.7 - Diarrhea, unspecified Additional Impression: Nausea and vomiting Qualified Codes: R11.2 - Nausea with vomiting, unspecified Disposition: 01 HOME, SELF-CARE Condition: Improved Departure-Patient Inst. Decision time for Depature: 05:20 Referrals: JAJA GAMEZ DO (PCP/Family) Primary Care Physician Patient Instructions: Diarrhea in Adolescents and Adults Add. Discharge Instructions: Drink plenty of clear liquids. Use Zofran as prescribed for nausea and vomiting. You may also use Imodium over the counter sparingly for diarrhea. Return to care if you have worsening symptoms dispute taking these measures. All discharge instructions reviewed with patient and/or family. Voiced understanding. Scripts Ondansetron (Ondansetron Odt) 4 Mg Tab.rapdis 4 MG SL Q4H, #10 TAB Prov: NEERAJ WYANE MD 10/21/19 NEERAJ WAYNE MD Oct 21, 2019 04:33
[2019-10-21 04:45] LABS: BILIRUBIN,URINE NEGATIVE (NEGATIVE); CLARITY,URINE CLEAR; GLUCOSE, URINE (UA) NEGATIVE (NEGATIVE); KETONES,URINE NEGATIVE (NEGATIVE); LEUKOCYTE ESTERASE ,URINE TRACE (NEGATIVE); NITRITE,URINE NEGATIVE (NEGATIVE); PH,URINE 6.5 (5-9); PROTEIN,URINE NEGATIVE (NEGATIVE)
[2019-10-21 04:52] LABS: BACTERIA,URINE NEGATIVE /HPF; COLOR,URINE YELLOW; RBC,URINE 0-2 /HPF
[2019-10-21 04:53] LABS: HYALINE CASTS, URINE 0-2 /LPF; SQUAMOUS EPITHELIAL CELL,UR RARE /HPF
[2019-10-21] MEDS ORDERED: LOPERAMIDE 2 MG (IMODIUM) TABLET PO ONE (05:15)
--- NOTE | 2019-10-21 05:20 | NUR ---
SON NAMRATA AND NEIGHBOR MARQUISE CALLED FOR RIDE FOR PT AT DISCHARGE, NEITHER ANSWERED AND MESSAGES LEFT.
[2019-10-21] MEDS ORDERED: ONDA4TAB11 SL (05:22)
[2019-10-21 05:53] VITALS: BP 152/60
--- NOTE | 2019-10-21 05:53 | NUR ---
PT NEIGHBOR MARQUISE HERE TO PICK HER UP TO TAKE HER HOME AT THIS TIME. DC INSTRUCTIONS REVIEWED WITH PT AND NEIGHBOR AT THIS TIME. DC'D TO PRIVATE VEHICLE.
== END 2019-10-21 05:53 | disposition home or self-care (01) ==
LOC: EDUNIT# 02:55 → ER 02:58
DX: R19.7 Diarrhea, unspecified (principal); R11.2 Nausea with vomiting, unspecified; I10 Essential (primary) hypertension; E78.00 Pure hypercholesterolemia, unspecified; I25.10 Atherosclerotic heart disease of native coronary artery without angina pectoris; I25.2 Old myocardial infarction; F41.9 Anxiety disorder, unspecified; Z88.0 Allergy status to penicillin; Z88.1 Allergy status to other antibiotic agents; Z79.82 Long term (current) use of aspirin; Z95.5 Presence of coronary angioplasty implant and graft
CPT/HCPCS: 36415; 80053; 81000; 83735; 85025; 86141

== ENCOUNTER → 2020-02-10 | Outpatient (CLI) | payer MEDICARE ==
[~2020-02-10] MED LIST changes: -ALEN70TA5 PO; +ALEN70TA69 PO; +ALPR.25T PO; -ALPR0.254 PO; +AMLO-250 PO; -AMLO5TAB9 PO; +ASPI-1238 PO; -ASPI-983 PO; +ONDA4TAB11 SL
[2020-02-10 12:44] LABS: CREATININE SERUM 0.9 MG/DL (0.60-1.30)
--- NOTE | 2020-02-10 14:28 | Diagnostic Imaging Report ---
EXAMINATION: CT Chest with intravenous contrast. TECHNIQUE: Multiple contiguous axial images were obtained through the chest after the uneventful administration of intravenous contrast. All CT scans use one or more of the following dose optimizing techniques: automated exposure control, MA and/or KvP adjustment based on a patient size and exam type, or iterative reconstruction. HISTORY: Shortness of breath. COMPARISON: 02/15/2019. FINDINGS: There is stable bronchiectasis and mucous plugging with tree-in-bud nodules in both lower lobes, right middle lobe and lingula suggestive of chronic mycobacterial infection. Disease severity is unchanged. There is scarring in both upper lobes. There is no axillary or supraclavicular lymphadenopathy. There is no mediastinal lymphadenopathy. Heart size is normal. There are moderate coronary artery calcifications. No pericardial effusion. Aorta is normal in caliber. Limited views of the upper abdomen are unremarkable. There are no suspicious osseous lesions. Old right-sided rib fractures are seen. IMPRESSION: 1. Stable bronchiectasis, mucous plugging and tree-in-bud nodules in both lower lobes, right middle lobe and lingula suggestive of chronic atypical mycobacterial infection. Dictated by: Dictated on workstation # [id number]
== END ==
LOC: RAD 12:06
PROVIDERS: ATTEND Internal Medicine Critical Care Medicine
DX: A31.0 Pulmonary mycobacterial infection (principal); J30.2 Other seasonal allergic rhinitis; R91.8 Other nonspecific abnormal finding of lung field; J47.9 Bronchiectasis, uncomplicated
CPT/HCPCS: 36415; 71260; 82565; 84520

== ENCOUNTER → 2020-06-06 | Outpatient (CLI) | payer MEDICARE ==
[~2020-06-06] MED LIST changes: -ALEN70TA69 PO; +ALEN70TA80 PO; -CIPR500T4 PO; +CIPR500T5 PO; -LISI40TA PO; +LISI40TA9 PO
== END ==
LOC: CARD 12:59
PROVIDERS: ATTEND Nurse Practitioner Family
DX: I08.3 Combined rheumatic disorders of mitral, aortic and tricuspid valves (principal)
CPT/HCPCS: 93306

== ENCOUNTER 2020-12-30 18:12 | Observation (INO) | payer MEDICARE ==
[~2020-12-30] VITALS: Ht 160 cm; Wt 52.1 kg
[2020-12-30 18:36] LABS: BASOPHILS % (AUTO) 0 % (0-10); EOSINOPHILS # (AUTO) 0.2 10^3/uL (0.0-0.3); EOSINOPHILS % (AUTO) 2 % (0-10); HEMATOCRIT 41 % (35-52); HEMOGLOBIN 13.9 g/dL (11.5-16.0); LYMPHOCYTES # (AUTO) 3.1 10^3/uL (1.0-4.0); LYMPHOCYTES % (AUTO) 31 % (12-44); MEAN CORPUSCULAR HEMOGLOBIN 32 pg (25-34); MEAN CORPUSCULAR HGB CONC 34 g/dL (32-36); MEAN CORPUSCULAR VOLUME 93 fL (80-99); MEAN PLATELET VOLUME 9.8 fL (9.0-12.2); MONOCYTES # (AUTO) 0.8 10^3/uL (0.0-1.0); MONOCYTES % (AUTO) 8 % (0-12); NEUTROPHILS # (AUTO) 5.9 10^3/uL (1.8-7.8); NEUTROPHILS % (AUTO) 58 % (42-75); PLATELET COUNT 240 10^3/uL (130-400); WHITE BLOOD COUNT 10.1 10^3/uL (4.3-11.0)
[2020-12-30 18:47] LABS: ALBUMIN 4.1 GM/DL (3.2-4.5); CHLORIDE 99 MMOL/L (98-107); POTASSIUM 4.1 MMOL/L (3.6-5.0); SODIUM 134 MMOL/L (135-145)
[2020-12-30 18:49] LABS: CALCIUM 9.6 MG/DL (8.5-10.1)
[2020-12-30 18:50] LABS: GLUCOSE 170 MG/DL (70-105); TOTAL PROTEIN 7.7 GM/DL (6.4-8.2)
[2020-12-30 18:51] LABS: BILIRUBIN,TOTAL 0.4 MG/DL (0.1-1.0); CARBON DIOXIDE 22 MMOL/L (21-32)
[2020-12-30 18:53] LABS: ALKALINE PHOSPHATASE 42 U/L (40-136); CREATININE SERUM 1.03 MG/DL (0.60-1.30); GFR ESTIMATED 51
[2020-12-30 18:54] LABS: BUN/CREATININE RATIO 17
[2020-12-30 18:55] LABS: FIBRIN DEGRADATION PRODUCTS 0.68 UG/ML (0.00-0.49); PROTHROMBIN TIME PATIENT 13.2 SEC (12.2-14.7)
[2020-12-30 18:56] LABS: ALANINE AMINOTRANSFERASE 21 U/L (0-55); MAGNESIUM 1.8 MG/DL (1.6-2.4)
[2020-12-30 18:57] LABS: CREATINE KINASE 186 U/L (29-168)
--- NOTE | 2020-12-30 19:02 | Diagnostic Imaging Report ---
INDICATION: Dizziness and dyspnea. EXAMINATION: AP view of chest was obtained. COMPARISON: Study of 08/05/2018. FINDINGS: There is air trapping, bilaterally, with prominent interstitial markings similar to previous study. No lobar consolidation is identified. Apical pleural thickening and calcification is noted. There is prominence of the ascending thoracic aorta, which is stable. There is an approximately 1 cm nodular focus projected over the right midlung lateral to the hilum. Otherwise, there is no evidence of additional pulmonary lesion or other adverse change. IMPRESSION: Background emphysema and probable COPD with nodular focus projecting over the right midlung which could represent focal scar tissue or nodular infiltrate. Consideration could be given to short-term radiographic follow-up or CT imaging for further characterization. Dictated by: Dictated on workstation # [id number]
--- NOTE | 2020-12-30 19:03 | Diagnostic Imaging Report ---
PROCEDURE: CT head w/o r/o stroke. TECHNIQUE: Multiple contiguous axial images were obtained through the brain without the use of intravenous contrast. Auto Exposure Controls were utilized during the CT exam to meet ALARA standards for radiation dose reduction. INDICATION: Neurologic deficit. CT HEAD: CT images of the head were obtained. FINDINGS: Ventricles and sulci are within normal limits for size. There is no intracranial hemorrhage identified. There is no abnormal mass effect or shift of midline structures. IMPRESSION: Unremarkable CT of the head. Dictated by: Dictated on workstation # [id number]
[2020-12-30 19:04] LABS: CREATINE KINASE MB 5.6 NG/ML (<6.6); ERYTHROCYTE SEDIMENTATION RATE 27 MM/HR (0-30)
[2020-12-30] MEDS ORDERED: hydrALAZINE (APESOLINE) 20 MG/ML VIAL IV ONE ×2 (19:15→21:30)
[2020-12-30] MEDS ORDERED: IOHEXOL 350 MG/ML 100 ML (OMNIPAQUE 350) VIAL IV ONE (19:30)
[2020-12-30] MEDS ORDERED: HOLD METFORMIN - RECEIVED CONTRAST 20 ML VIAL IV SCH (19:30)
[2020-12-30] MEDS ORDERED: NS 100 ML (IVPB) BAG IV ONE (19:30)
--- NOTE | 2020-12-30 19:59 | Diagnostic Imaging Report ---
PROCEDURE: CT angiography of the chest with contrast. TECHNIQUE: Multiple contiguous axial images were obtained through the chest after uneventful bolus administration of intravenous contrast. 3D reconstructed CTA MIP acquisitions were also performed. Auto Exposure Controls were utilized during the CT exam to meet ALARA standards for radiation dose reduction. INDICATION: High suspicion for pulmonary embolism. COMPARISON: 02/10/2020. FINDINGS: There is good opacification of pulmonary arteries without intraluminal filling defect to indicate embolism. There is extensive aortic athetotic calcification. No dissection is identified. There is no evidence of mediastinal hematoma. Coarse interstitial markings are seen, bilaterally, with a lower lobe predominance. Areas of bronchiectasis with tree-in-bud appearance are again demonstrated. This likely accounts for nodularity in the right mid lung on recent chest x-ray. No discrete parenchymal lesion is identified. IMPRESSION: No CTA evidence of pulmonary embolism. Bronchiectasis and tree-in-bud opacities are again demonstrated in both lungs with background interstitial lung disease. This likely accounts for nodularity on recent chest x-ray without discrete mass or focal consolidation identified. Dictated by: Dictated on workstation # [id number]
[2020-12-30 20:07] LABS: BILIRUBIN,URINE NEGATIVE (NEGATIVE); CLARITY,URINE CLEAR; COLOR,URINE YELLOW; GLUCOSE, URINE (UA) NEGATIVE (NEGATIVE); KETONES,URINE NEGATIVE (NEGATIVE); LEUKOCYTE ESTERASE ,URINE 2+ (NEGATIVE); NITRITE,URINE NEGATIVE (NEGATIVE); PROTEIN,URINE NEGATIVE (NEGATIVE)
[2020-12-30 20:13] LABS: BACTERIA,URINE TRACE /HPF; SQUAMOUS EPITHELIAL CELL,UR RARE /HPF
[2020-12-30] MEDS ORDERED: ATENOLOL 50 MG (TENORMIN) TAB PO ONE (21:30)
--- NOTE | 2020-12-30 21:54 | ED General ---
General Chief Complaint: Dizziness/Syncope Stated Complaint: FALL/DIZZINESS/SOB Nursing Triage Note: ARRIVED VIA AMB TO ROOM 03 WITH COMPLAINTS OF DIZZINESS STARTING TODAY. Source of Information: Patient (VERY LIMITED HISTORIAN) Allergies and Home Medications Allergies Coded Allergies: amoxicillin (Verified Allergy, Unknown, 10/24/15) erythromycin base (Verified Allergy, Unknown, 10/24/15) Patient Home Medication List ALPRAZolam (Xanax Tablet) 0.25 Mg Tablet, 0.25 MG PO Q8H PRN for ANXIETY, (Reported) Entered as Reported by: KATERINA HARO on 10/24/15 162 Alendronate Sodium (Alendronate Sodium) 70 Mg Tablet, 70 MG PO WEEKLY ON THURSDAY, (Reported) Entered as Reported by: KATERINA HARO on 10/24/15 162 Amlodipine Besylate (Amlodipine Besylate) 5 Mg Tablet, 5 MG PO DAILY, (Reported) Entered as Reported by: KATERINA HRAO on 10/24/15 162 Aspirin (Aspirin EC) 81 Mg Tablet.dr, 81 MG PO DAILY, (Reported) Entered as Reported by: JACKY TELLO on 07/28/17 1458 Atenolol (Atenolol) 50 Mg Tablet, 50 MG PO BID, (Reported) Entered as Reported by: KATERINA HARO on 10/24/15 162 Calcium Citrate/Vitamin D3 (Calcium Citrate - Vit D Tablet) 1 Each Tablet, 2 TAB PO DAILY, (Reported) Entered as Reported by: KATERINA HARO on 10/24/15 1628 Lisinopril (Lisinopril) 40 Mg Tablet, 40 MG PO DAILY@1200, (Reported) Entered as Reported by: KATERINA HARO on 10/24/15 1623 Loratadine (Loratadine) 10 Mg Tablet, 10 MG PO DAILY, (Reported) Entered as Reported by: JACKY TELLO on 07/28/17 1458 Metronidazole (Metronidazole) 45 Gm Cream..g., 5 GM TP DAILY, (Reported) Entered as Reported by: JACKY TELLO on 07/28/17 145 Ondansetron (Ondansetron Odt) 4 Mg Tab.rapdis, 4 MG SL Q4H Prescribed by: NEERAJ BRASWELL on 10/21/19 0522 Pravastatin Sodium (Pravastatin Sodium) 80 Mg Tablet, 80 MG PO HS, (Reported) Entered as Reported by: KATERINA HARO on 10/24/15 4130 Past Fpwpymj-Qfxhmj-Tlsrjb Hx Immunizations Up To Date Second COVID19 Vaccination Keanu: HAS GOTTEN IT BUT DOES NOT REMEMBER COVID19 Vaccine Block Handler: DOES NOT REMEMBER Seasonal Allergies Seasonal Allergies: Yes Past Medical History Surgeries: Yes (BILATERAL CATARACT REMOVAL, LASER SURGERY ON L EYE , R WRIST ) Coronary Stent Respiratory: Yes (chronic cough, lung nodules) Pneumonia Cardiac: Yes (stent) Coronary Artery Disease, Heart Attack, High Cholesterol, Hypertension Neurological: No Reproductive Disorders: No Female Reproductive Disorders: Denies Sexually Transmitted Disease: No HIV/AIDS: No Gastrointestinal: Yes Diverticulosis, Irritable Bowel Musculoskeletal: Yes Osteoporosis, Arthritis Endocrine: No Cataract Cancer: No Psychosocial: Yes Anxiety Integumentary: Yes (rosacea) Blood Disorders: No Family Medical History FH: emphysema G8 BROTHER G8 BROTHER No Pertinent Family Hx Physical Exam Vital Signs Vital Signs - First Documented 12/30/20 18:20 Temp 36.3 Pulse 77 Resp 16 B/P (MAP) 206/80 (122) Pulse Ox 96 O2 Delivery Room Air Capillary Refill : Less Than 3 Seconds Height, Weight, BMI Height: 5'3.00" Weight: 123lbs. 0.0oz. 55.216069he; 23.00 BMI Method:Stated Progress/Results/Core Measures Suspected Sepsis SIRS Temperature: Pulse: 77 Respiratory Rate: 16 Laboratory Tests 12/30/20 18:30: White Blood Count 10.1 Blood Pressure 206 /80 Mean: 122 Laboratory Tests 12/30/20 18:30: Creatinine 1.03, INR Comment 1.0, Platelet Count 240, Total Bilirubin 0.4 Results/Orders Lab Results Laboratory Tests Test 12/30/20 18:30 12/30/20 18:36 12/30/20 20:03 12/30/20 21:30 Range/Units White Blood Count 10.1 4.3-11.0 10^3/uL Red Blood Count 4.36 3.80-5.11 10^6/uL Hemoglobin 13.9 11.5-16.0 g/dL Hematocrit 41 35-52 % Mean Corpuscular Volume 93 80-99 fL Mean Corpuscular Hemoglobin 32 25-34 pg Mean Corpuscular Hemoglobin Concent 34 32-36 g/dL Red Cell Distribution Width 11.9 10.0-14.5 % Platelet Count 240 130-400 10^3/uL Mean Platelet Volume 9.8 9.0-12.2 fL Immature Granulocyte % (Auto) 0 % Neutrophils (%) (Auto) 58 42-75 % Lymphocytes (%) (Auto) 31 12-44 % Monocytes (%) (Auto) 8 0-12 % Eosinophils (%) (Auto) 2 0-10 % Basophils (%) (Auto) 0 0-10 % Neutrophils # (Auto) 5.9 1.8-7.8 10^3/uL Lymphocytes # (Auto) 3.1 1.0-4.0 10^3/uL Monocytes # (Auto) 0.8 0.0-1.0 10^3/uL Eosinophils # (Auto) 0.2 0.0-0.3 10^3/uL Basophils # (Auto) 0.0 0.0-0.1 10^3/uL Immature Granulocyte # (Auto) 0.0 0.0-0.1 10^3/uL Erythrocyte Sedimentation Rate 27 0-30 MM/HR Prothrombin Time 13.2 12.2-14.7 SEC INR Comment 1.0 0.8-1.4 Activated Partial Thromboplast Time 32 24-35 SEC D-Dimer 0.68 H 0.00-0.49 UG/ML Sodium Level 134 L 135-145 MMOL/L Potassium Level 4.1 3.6-5.0 MMOL/L Chloride Level 99 98-107 MMOL/L Carbon Dioxide Level 22 21-32 MMOL/L Anion Gap 13 5-14 MMOL/L Blood Urea Nitrogen 18 7-18 MG/DL Creatinine 1.03 0.60-1.30 MG/DL Estimat Glomerular Filtration Rate 51 BUN/Creatinine Ratio 17 Glucose Level 170 H 70-105 MG/DL Calcium Level 9.6 8.5-10.1 MG/DL Corrected Calcium 9.5 8.5-10.1 MG/DL Magnesium Level 1.8 1.6-2.4 MG/DL Total Bilirubin 0.4 0.1-1.0 MG/DL Aspartate Amino Transf (AST/SGOT) 27 5-34 U/L Alanine Aminotransferase (ALT/SGPT) 21 0-55 U/L Alkaline Phosphatase 42 40-136 U/L Total Creatine Kinase 186 H 29-168 U/L Creatine Kinase MB 5.6 <6.6 NG/ML Myoglobin 121.7 H 10.0-92.0 NG/ML Troponin I < 0.028 <0.028 NG/ML C-Reactive Protein High Sensitivity 0.10 0.00-0.50 MG/DL B-Type Natriuretic Peptide 559.0 H <100.0 PG/ML Total Protein 7.7 6.4-8.2 GM/DL Albumin 4.1 3.2-4.5 GM/DL TSH [place] Testing 1.70 0.35-4.94 UIU/ML Glucometer 175 H 70-110 MG/DL Urine Color YELLOW Urine Clarity CLEAR Urine pH 7.0 5-9 Urine Specific [place] 1.010 L 1.016-1.022 Urine Protein NEGATIVE NEGATIVE Urine Glucose (UA) NEGATIVE NEGATIVE Urine Ketones NEGATIVE NEGATIVE Urine Nitrite NEGATIVE NEGATIVE Urine Bilirubin NEGATIVE NEGATIVE Urine Urobilinogen 0.2 < = 1.0 MG/DL Urine Leukocyte Esterase 2+ H NEGATIVE Urine RBC (Auto) TRACE-L NEGATIVE Urine RBC NONE /HPF Urine WBC 2-5 /HPF Urine Squamous Epithelial Cells RARE /HPF Urine Crystals NONE /LPF Urine Bacteria TRACE /HPF Urine Casts NONE /LPF Urine Mucus NEGATIVE /LPF Urine Culture Indicated NO My Orders Orders - ANGEL REYES DO Accucheck Stat ONCE (12/30/20 18:31) Ed Iv/Invasive Line Start (12/30/20 18:31) Ekg Tracing (12/30/20 18:31) O2 (12/30/20 18:31) Monitor-Rhythm Ecg Trace Only (12/30/20 18:31) Ct Head Wo-R/O Stroke (12/30/20 18:31) Chest 1 View, Ap/Pa Only (12/30/20 18:31) BNP (12/30/20 18:31) Cbc With Automated Diff (12/30/20 18:31) Comprehensive Metabolic Panel (12/30/20 18:31) Creatine Kinase (12/30/20 18:31) Creatine Kinase Mb (12/30/20 18:31) Hs C Reactive Protein (12/30/20 18:31) Fibrin Degradation Products (12/30/20 18:31) Magnesium (12/30/20 18:31) Protime With Inr (12/30/20 18:31) Partial Thromboplastin Time (12/30/20 18:31) Thyroid Analyzer (12/30/20 18:31) Ua Culture If Indicated (12/30/20 18:31) Erythrocyte Sedimentation Rate (12/30/20 18:31) Myoglobin Serum (12/30/20 18:31) Troponin I (12/30/20 18:31) Ct Angio Chest W (12/30/20 19:15) Hydralazine Injection (Apresoline Inject (12/30/20 19:15) Iohexol Injection (Omnipaque 350 Mg/Ml 1 (12/30/20 19:30) Received Contrast (Hold Metformin- Contr (12/30/20 19:30) Ns (Ivpb) (Sodium Chloride 0.9% Ivpb Bag (12/30/20 19:30) Ekg Tracing (12/30/20 21:18) Hydralazine Injection (Apresoline Inject (12/30/20 21:30) Atenolol Tablet (Tenormin Tablet) (12/30/20 21:30) Troponin I (12/30/20 21:39) Medications Given in ED Current Medications Medications Dose Ordered Sig/Yolette Route Start Time Stop Time Status Last Admin Dose Admin Hydralazine HCl 10 mg ONCE ONCE IV 12/30/20 19:15 12/30/20 19:16 DC 12/30/20 20:01 10 MG Iohexol 100 ml ONCE ONCE IV 12/30/20 19:30 12/30/20 19:31 DC 12/30/20 19:51 65 ML Sodium Chloride 100 ml ONCE ONCE IV 12/30/20 19:30 12/30/20 19:31 DC 12/30/20 19:51 80 ML Vital Signs/I&O 12/30/20 18:20 Temp 36.3 Pulse 77 Resp 16 B/P (MAP) 206/80 (122) Pulse Ox 96 O2 Delivery Room Air Capillary Refill : Less Than 3 Seconds Blood Pressure Mean: 122 Point of Care Testing Finger Stick Blood Glucose: 175 Blood Glucose Action Taken: notified Departure Departure-Patient Inst. Referrals: JAJA GAMEZ DO (PCP/Family) Primary Care Physician ANGEL REYES DO Dec 30, 2020 21:54
[2020-12-30] MEDS ORDERED: cefTRIAXone 1,000 MG in WATER (STERILE) FOR INJECTION 10 ML IV ONE (22:15)
[2020-12-30] MEDS ORDERED: CATHETER FLUSH 10 ML SYR IV PRN (23:30)
[2020-12-30] MEDS ORDERED: ACETAMINOPHEN 500 MG TAB (TYLENOL) PO PRN (23:30)
[2020-12-30] MEDS ORDERED: ONDANSETRON 4 MG/2 ML (SDV) Z0FRAN IV PRN (23:30)
[2020-12-30] MEDS ORDERED: hydrALAZINE (APESOLINE) 20 MG/ML VIAL IV PRN (23:30)
[2020-12-31] VITALS: BP 183/79
[2020-12-31] MEDS ORDERED: ATENOLOL 50 MG (TENORMIN) TAB ONE (00:23)
[2020-12-31 04:12] VITALS: BP 118/63
[2020-12-31 05:51] LABS: BASOPHILS % (AUTO) 0 % (0-10); EOSINOPHILS % (AUTO) 0 % (0-10); HEMATOCRIT 39 % (35-52); HEMOGLOBIN 13.2 g/dL (11.5-16.0); LYMPHOCYTES # (AUTO) 2.3 10^3/uL (1.0-4.0); LYMPHOCYTES % (AUTO) 21 % (12-44); MEAN CORPUSCULAR HEMOGLOBIN 31 pg (25-34); MEAN CORPUSCULAR HGB CONC 34 g/dL (32-36); MEAN CORPUSCULAR VOLUME 92 fL (80-99); MEAN PLATELET VOLUME 9.5 fL (9.0-12.2); MONOCYTES # (AUTO) 0.9 10^3/uL (0.0-1.0); MONOCYTES % (AUTO) 8 % (0-12); NEUTROPHILS % (AUTO) 71 % (42-75); PLATELET COUNT 227 10^3/uL (130-400); WHITE BLOOD COUNT 11.3 10^3/uL (4.3-11.0)
[2020-12-31] MEDS: CATHETER FLUSH 10 ML SYR IV SCH ×3 (05:54→18:15)
[2020-12-31 06:08] LABS: POTASSIUM 4.1 MMOL/L (3.6-5.0)
[2020-12-31 06:09] LABS: CALCIUM 9.4 MG/DL (8.5-10.1)
[2020-12-31 06:13] LABS: CREATININE SERUM 0.79 MG/DL (0.60-1.30)
--- NOTE | 2020-12-31 09:07 | History & Physical-Hospitalist ---
FLAKOMARYESTHER MED STUDENT 12/31/20 0907: History of Present Illness HPI/Chief Complaint 89 yo female presented to ED d/t dizziness that resulted in a fall. Pt states she was feeling well yesterday, then around 1600 the room started to spin and she fell on the floor. This fall did not result in LOC or injury. Pt reports she then called her friend to come get her and take her to the ED. Pt has hx of HTN and urinary incontinence. Pt reports she is incontinent of urine at [facility] and wears adult diapers or pads that she changes three times during the noc. Pt denies frequency or dysuria prior to this. Pt was admitted to 4th floor after she was found to have UTI. Pt reports feeling well this morning. Denies dizziness or UTI sxs. Pt reports she lives at home with her son, Renan, who is a nurse. He was out of town when this incident occurred, but is back in town now. Pt states she became incontinent of feces during her fall yesterday. Source: patient Exam Limitations: no limitations Date Seen 12/31/20 Time Seen by a Provider: 08:15 Attending Physician Wendy Merchant MD PCP Pascual Olivera DO Referring Physician Date of Admission Dec 30, 2020 at 22:00 Home Medications & Allergies Home Medications Reviewed patient Home Medication Reconciliation performed by pharmacy medication reconciliations physical therapy technician and/or nursing. Patients Allergies have been reviewed. Allergies Allergies Coded Allergies amoxicillin (Verified Allergy, Unknown, 10/24/15) erythromycin base (Verified Allergy, Unknown, 10/24/15) Past Qmzikob-Qrwqwu-Shrwzq Hx Patient Social History Tobacco Use?: No Smoking Status: Never a Smoker Smokeless Tobacco Frequency: Never a User Use of E-Cig and/or Vaping dev: No Substance use?: No Alcohol Use?: No Pt feels they are or have been: No Immunizations Up To Date Date of Influenza Vaccine: Jan 27, 2017 First/Initial COVID19 Vaccinat: HAS GOTTEN IT BUT DOES NOT REMEMBER Second COVID19 Vaccination Keanu: HAS GOTTEN IT BUT DOES NOT REMEMBER Date of Pneumonia Vaccine: Apr 13, 2011 Seasonal Allergies Seasonal Allergies: Yes Current Status Advance Directives: Yes Advance Directive Location: Home Communicates: Verbally Primary Language: Venezuelan Preferred Spoken Language: Venezuelan Sensory deficits: Vision impairment, Hearing impairment Implanted or Applied Medical D: None Past Medical History Surgeries: Coronary Stent Pneumonia Coronary Artery Disease, Heart Attack, High Cholesterol, Hypertension Sexually Transmitted Disease: No HIV/AIDS: No Diverticulosis, Irritable Bowel Osteoporosis, Arthritis Cataract Anxiety Blood Disorders: No Family Medical History FH: emphysema G8 BROTHER G8 BROTHER No Pertinent Family Hx Review of Systems Constitutional: No chills, No dizziness, No fever Respiratory: cough (productive); No dyspnea on exertion, No short of breath Cardiovascular: No chest pain, No palpitations Gastrointestinal: No abdominal pain, No constipation, No diarrhea, No nausea, No vomiting Genitourinary: No dysuria, No frequency Musculoskeletal: no symptoms reported Skin: no symptoms reported Psychiatric/Neurological: Denies Headache Physical Exam Physical Exam Vital Signs Vital Signs - First Documented 12/30/20 18:20 Temp 36.3 Pulse 77 Resp 16 B/P (MAP) 206/80 (122) Pulse Ox 96 O2 Delivery Room Air Capillary Refill : Less Than 3 Seconds Height, Weight, BMI Height: 5'3.00" Weight: 123lbs. 0.0oz. 55.015133do; 20.35 BMI Method:Stated General Appearance: No Apparent Distress, WD/WN HEENT: PERRL/EOMI Respiratory: Chest Non Tender, Lungs Clear, Normal Breath Sounds, No Accessory Muscle Use, No Respiratory Distress Cardiovascular: Regular Rate, Rhythm, No Murmur, Normal Peripheral Pulses Gastrointestinal: Normal Bowel Sounds, Non Tender, Soft Extremity: Normal Capillary Refill, Normal Inspection, Non Tender, No Calf Tenderness, No Pedal Edema Neurologic/Psychiatric: Alert, Oriented x3, No Motor/Sensory Deficits, Normal Mood/Affect, production control scheduler II-XII Norm as Tested Skin: Normal Color, Warm/Dry Results Results/Procedures Labs Laboratory Tests 12/30/20 18:30 12/31/20 05:40 Patient resulted labs reviewed. 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 MAURA ROJO MD 01/04/21 1635: Past Apssfzg-Ndqmne-Hwyfit Hx Family Medical History FH: emphysema G8 BROTHER G8 BROTHER Assessment/Plan Admission Diagnosis Admission Status: Observation Reason for Inpatient Admission: see below Assessment and Plan Patient presented with a urinary tract infection secondary dizziness and was unable to be discharged safely home from the emergency room. She was treated with IV antibiotics and this morning reports she is feeling much better. She has already been up and ambulating. She did have a minimally elevated D-dimer but CTA was done and is negative for PE. Her son who lives with her is now back in town and able to be with her. She is requesting discharge home. We did offer her an additional day of admission but she would like to go home. We will transition her to oral antibiotics and recommended close follow-up with her primary care doctor. Supervisory-Addendum Brief Verification & Attestation Participated in pt care: history, MDM, physical Personally performed: exam, history, MDM, supervision of care Care discussed with: Medical Student Procedures: n/a Results interpretation: Verified all documentation Verification and Attestation of Medical Student E/M Service A medical student performed and documented this service in my presence. I reviewed and verified all information documented by the medical student and made modifications to such information, when appropriate. I personally performed the physical exam and medical decision making. Maura Rojo, Jan 05, 2021,13:41 ESTHER MONIQUE MED STUDENT Dec 31, 2020 09:07 MAURA ROJO MD Jan 04, 2021 16:35
--- NOTE | 2020-12-31 09:13 | Physical Therapy Evaluation ---
PT Evaluation-General Medical Diagnosis Admission Date Dec 30, 2020 at 22:00 Medical Diagnosis: Dizziness, Syncope Onset Date: Dec 30, 2020 Therapy Diagnosis Therapy Diagnosis: Gait deficit, strength deficit Height/Weight Height (Feet): 5 Height (Inches): 3.00 Weight (Pounds): 123 Weight (Ounces): 0.0 Precautions Precautions/Isolations: Fall Prevention, Standard Precautions Referral Physician: Dr. Merchant Reason for Referral: Evaluation/Treatment Medical History Pertinent Medical History: CAD, HTN, Hypothroidism Social History Home: Multilevel Current Living Status: Children Entry Into Home: Stairs With Railing PT Steps Into Home: 3 PT Steps Inside Home: 14 Prior Prior Level of Function SCALE: Activities may be completed with or without assistive devices. 3-Fzturnmzpl-ffkxobh completes the activity by him/herself with no assistance from a helper. 5-Set-up or Clean-up Assistance-helper sets up or cleans up; patient completes activity. Walton assists only prior to or following the activity. 4-Supervision or Touching Assistance-helper provides verbal cues and/or touching/steadying and/or contact guard assistance as patient completes activity. Assistance may be provided throughout the activity or intermittently. 3-Partial/Moderate Assistance-helper does LESS THAN HALF the effort. Walton lifts, holds or supports trunk or limbs, but provides less than half the effort. 2-Substantial/Maximal Assistance-helper does MORE THAN HALF the effort. Walton lifts or holds trunk or limbs and provides more than half the effort. 5-Nlixlrqkl-ukyjox does ALL the effort. Patient does none of the effort to complete the activity. Or, the assistance of 2 or more helpers is required for the patient to complete the activity. If activity was not attempted, code reason: 7-Patient Refused. 9-Not Applicable-not attempted and the patient did not perform the activity before the current illness, exacerbation or injury. 10-Not Attempted due to Environmental Limitations-(lack of equipment, weather restraints, etc.). 88-Not Attempted due to Medical Conditions or Safety Concerns. Bed Mobility: 6 Transfers (B,C,W/C): 6 Gait: 6 Stairs: 6 Indoor Mobility (Ambulation): Independent Stairs: Independent PT Evaluation-Current Subjective Patient sitting with bed in chair position upon PT arrival, agreeable to treatment. Reports 0/10 pain currently and no dizziness. Objective Patient Orientation: Person, Place, Time, Situation ROM/Strength ROM Lower Extremities WFLs all planes bilaterally Strength Lower Extremities 3+/5 grossly bilaterally Neuromuscular (Tone, Coordination, Reflexes) Coordination compromised in LE control tests, unable to successfully trace square in either direction bilaterally with multiple attempts. Sensory Vision: Wears Glasses Hearing: Functional Transfers Roll Left to Right (QC): 5 Sit to Lying (QC): 5 Lying to Sitting/Side of Bed(Q: 5 Sit to Stand (QC): 5 Chair/Brt-im-Yibbc Xfer(QC): 5 Gait Does the Patient Walk?: Yes Mode of Locomotion: Walk Anticipated Mode of Locomotion: Walk Walk 10 feet (QC): 4 Walk 50 ft with 2 Turns(QC): 4 Walk 150 ft (QC): 4 Distance: 200 feet Comments/Gait Description Patient ambulates with no Assistive device, however keeps her torso very rigid. She tends to leans forwards minimally and demonstrates an accentuated thoracic kyphosis with a mild forward head position. She ambulates with a narrow ARLINE, and tends to veer to the right at times. Wheelchair Training Does the Pt Use a Wheelchair?: No Balance Sitting Static: Good Sitting Dynamic: Good Standing Static: Fair Standing Dynamic: Fair Assessment/Needs Patient tolerates treatment well. Performs all observed bed mobility and trans fers with CGA due to balance and safety. Patient ambulates 200 feet with MATERIAL PLANNING ANALYST and verbal cues for safety, progression, conservation of energy and posture. Patient ambulates with no Assistive device, however keeps her torso very rigid. She tends to leans forwards minimally and demonstrates an accentuated thoracic kyphosis with a mild forward head position. She ambulates with a narrow ARLINE, and tends to veer to the right at times. Patient in chair post treatment with all needs met, nursing notified, call light in reach. Rehab Potential: Fair PT Half-Way Goals Half-Way Goals PT Order Fulfillment Specialist Goals Time Frame: Jan 21, 2021 Roll Left & Right (QC): 6 Sit to Lying (QC): 6 Lying-Sitting on Side/Bed(QC): 6 Sit to Stand (QC): 6 Chair/Wei-vi-Brecr Xfer(QC): 6 Toilet Transfer (QC): 6 Does the Patient Walk: Yes Walk 10 feet (QC): 6 Walk 50ft with 2 Turns (QC): 6 Walk 150 ft (QC): 6 1 Step (curb) (QC): 5 4 Steps (QC): 5 12 Steps (QC): 5 PT Plan Problem List Problem List: Activity Tolerance, Functional Strength, Safety, Balance, Gait, Transfer, Bed Mobility, ROM Treatment/Plan Treatment Plan: Continue Plan of Care Treatment Plan: Bed Mobility, Education, Functional Activity Surya, Functional Strength, Group Therapy, Gait, Safety, Therapeutic Exercise, Transfers Treatment Duration: Mar 12, 2021 Frequency: 6 times per week Estimated Hrs Per Day: .25 hour per day Safety Risks/Education Patient Education: Gait Training, Transfer Techniques Teaching Recipient: Patient Teaching Methods: Demonstration, Discussion Response to Teaching: Verbalize Understanding, Return Demonstration Time/GCodes Time In: 0840 Time Out: 910 Total Billed Treatment Time: 30 Total Billed Treatment Visit, Guy Le JOHN A PT Dec 31, 2020 09:13
[2020-12-31] MEDS ORDERED: HYPR10GE4 OS (10:07)
[2020-12-31] MEDS ORDERED: LORA10TA7 PO (10:07)
[2020-12-31] MEDS ORDERED: PEG15DRO9 OS (10:07)
[2020-12-31] MEDS ORDERED: METR45GE9 TP (10:12)
[2020-12-31 12:00] VITALS: BP 167/62
[2020-12-31] MEDS ORDERED: CEFD300C3 PO (12:34)
[2020-12-31] MEDS ORDERED: LACT1CAP74 PO (12:34)
--- NOTE | 2020-12-31 12:37 | Discharge Inst-Simple/Standard ---
Discharge Inst-Standard Discharge Medications New, Converted or Re-Newed RX: Transmitted to Pharmacy Patient Instructions/Follow Up Plan of Care/Instructions/FU: Please continue to take your medications as written. Please follow up with your primary care doctor, Dr Olivera to follow up this hosptial stay. Activity as Tolerated: Yes Discharge Diet: No Restrictions Return to The Hospital For: Chest pain, shortness of breath, dizziness, weakness, falls, fever, if you feel you are getting worse. MAURA DAVID MD Dec 31, 2020 12:37
[2020-12-31 15:33] VITALS: BP 154/70
[2020-12-31] MEDS ORDERED: cefTRIAXone 2,000 MG VIAL ONE (18:00)
[2020-12-31] MEDS ORDERED: cefTRIAXone 1,000 MG VIAL ONE (18:03)
[2020-12-31] MEDS ORDERED: WATER (STERILE) FOR INJECTION 10 ML ONE (18:07)
[2020-12-31 18:35] VITALS: BP 154/70
[2020-12-31] MEDS ORDERED: cefTRIAXone 1,000 MG/SWFI 10 ML IV PUSH IV SCH ×2 (21:00)
--- NOTE | 2021-01-04 13:59 | Physician Query-Final Dx ---
VALENTINO ODELL 01/04/21 1359: Final Diagnosis Give Final Diagnosis Please give Final Diagnosis MAURA DAVID MD 01/04/21 1558: Final Diagnosis Give Final Diagnosis UTI VALENTINO ODELL Jan 04, 2021 13:59 MAURA DAVID MD Jan 04, 2021 15:58
== END 2020-12-31 18:30 | disposition home or self-care (01) ==
LOC: EDUNIT# 18:12 → ER 18:15 → 4TH 22:00 → INTOOBSV 22:00
PROVIDERS: ADMIT Internal Medicine; ATTEND Internal Medicine
DX: N39.0 Urinary tract infection, site not specified (principal); D72.829 Elevated white blood cell count, unspecified; R79.89 Other specified abnormal findings of blood chemistry; I44.7 Left bundle-branch block, unspecified; I10 Essential (primary) hypertension; I49.1 Atrial premature depolarization; J30.2 Other seasonal allergic rhinitis; E78.00 Pure hypercholesterolemia, unspecified; I25.10 Atherosclerotic heart disease of native coronary artery without angina pectoris; M81.0 Age-related osteoporosis without current pathological fracture; M19.90 Unspecified osteoarthritis, unspecified site; F41.9 Anxiety disorder, unspecified; J44.9 Chronic obstructive pulmonary disease, unspecified; Z79.899 Other long term (current) drug therapy; Z79.82 Long term (current) use of aspirin; Z79.2 Long term (current) use of antibiotics
CPT/HCPCS: 36415; 70450; 71045; 71275; 80048; 80053; 81000; 82550; 82553; 82947; 83735; 83874; 83880; 84443; 84484; 85025; 85379; 85610; 85652; 85730; 86141; 93005; 93041; 96374; 96375; 96376

== ENCOUNTER → 2021-10-21 | Outpatient (CLI) | payer MEDICARE ==
[~2021-10-21] MED LIST changes: +CEFD300C3 PO; +HYPR10GE4 OS; +LACT1CAP74 PO; +METR45GE9 TP; +PEG15DRO9 OS
--- NOTE | 2021-10-21 11:03 | Diagnostic Imaging Report ---
INDICATION: Shortness of breath. Time of Exam: 10:31 AM Correlation is made with prior chest from 07/09/2017. Heart is enlarged but stable. Lungs are hyperinflated consistent with COPD. There may be some minimal infiltrate right mid lower lung field. Left lung is clear. There is no effusion or pneumothorax. There is a compression fracture of midthoracic spine, new since the chest radiograph from 2017 however acuity is indeterminate. This also appears to be new since December 2020. IMPRESSION: 1. COPD and cardiomegaly with patchy infiltrate right mid and lower lung field. 2. Mid thoracic compression fracture, new since CT study from December 2020. Dictated by: Dictated on workstation # [id number]
== END ==
LOC: LAB 10:06
PROVIDERS: ATTEND Family Medicine
DX: J44.9 Chronic obstructive pulmonary disease, unspecified (principal); I51.7 Cardiomegaly; R91.8 Other nonspecific abnormal finding of lung field; S22.009A Unspecified fracture of unspecified thoracic vertebra, initial encounter for closed fracture
CPT/HCPCS: 36415; 71046; 83036

== ENCOUNTER → 2021-11-04 | Outpatient (CLI) | payer MEDICARE ==
[2021-11-04 10:15] LABS: CALCIUM 9.6 MG/DL (8.5-10.1); CREATININE SERUM 0.84 MG/DL (0.60-1.30); POTASSIUM 3.4 MMOL/L (3.6-5.0)
--- NOTE | 2021-11-04 10:44 | Diagnostic Imaging Report ---
INDICATION: Shortness of breath PA and lateral chest Comparison made to the study from 10/21/2021. Heart size and pulmonary vascularity are normal. There is a reticulonodular interstitial pattern in the lungs with relatively large nodular components. These are not significantly changed from prior exam. There is some questionable right lower lung alveolar consolidation. IMPRESSION: Reticulonodular interstitial lung disease. Questionable infiltrate right lower lung similar in appearance to exam done on 10/21/2021. Dictated by: Dictated on workstation # [id number]
== END ==
LOC: LAB 09:37
PROVIDERS: ATTEND Family Medicine
DX: I50.9 Heart failure, unspecified (principal); J18.9 Pneumonia, unspecified organism; J84.9 Interstitial pulmonary disease, unspecified
CPT/HCPCS: 36415; 71046; 80048; 83880

== ENCOUNTER → 2021-11-05 | Outpatient (CLI) | payer MEDICARE ==
[~2021-11-05] MED LIST changes: +CATHETER FLUSH 10 ML SYR IV PRN; +HOLD METFORMIN - RECEIVED CONTRAST 20 ML VIAL IV SCH; +IOHEXOL 350 MG/ML 100 ML (OMNIPAQUE 350) VIAL IV ONE; +NS 100 ML (IVPB) BAG IV ONE
--- NOTE | 2021-11-05 16:14 | Diagnostic Imaging Report ---
PROCEDURE: CT chest with contrast only. TECHNIQUE: Multiple contiguous axial images were obtained through the chest after administration of intravenous contrast. Auto Exposure Controls were utilized during the CT exam to meet ALARA standards for radiation dose reduction. INDICATION: Shortness of air, pulmonary infiltrate. COMPARISON: Radiographs dated 11/04/2021 as well as CTs dated 12/30/2020 and 02/10/2020. FINDINGS: No significant adenopathy within the chest. Advanced scattered vascular calcifications including within the coronary arteries. No aneurysmal dilatation of the thoracic aorta. The heart is enlarged, particularly the right heart. No pericardial effusion. No significant pleural effusion. No pneumothorax. Biapical pleural parenchymal scarring is again seen. Extensive tree-in-bud nodularity is again identified throughout the lungs bilaterally, greatest within the lower lobes. This is predominantly stable from prior imaging. This is associated with scattered bronchiectatic changes which are greatest within the lung bases. This is associated with peribronchial thickening with multiple filling defects within the bronchiectatic changes bilaterally. These findings appear relatively stable from the prior examination from December 2020; however, mucous plugging has slightly worsened within the lingula. Vascular calcifications within the abdominal aorta and its branch vessels. The minimally visualized upper abdomen is otherwise grossly unremarkable. Moderate superior endplate compression deformity of T10 is identified, new from the prior examination. Additional scattered osseous degenerative changes are present. IMPRESSION: Age-indeterminate though interval moderate compression deformity of T10 which is new since December 2020. Severe background tree-in-bud nodularity, bronchiectatic changes, and mucous plugging. This is relatively similar to the prior exam with slightly increased mucous plugging within the lingula when compared to prior. Stable cardiomegaly with particular enlargement of the right heart. Additional findings as above. Dictated by: Dictated on workstation # [id number]
== END ==
LOC: RAD 15:14
PROVIDERS: ATTEND Family Medicine
DX: J47.9 Bronchiectasis, uncomplicated (principal); I51.7 Cardiomegaly; R91.8 Other nonspecific abnormal finding of lung field; M43.8X4 Other specified deforming dorsopathies, thoracic region
CPT/HCPCS: 71260